=== PATIENT | female | born 1965 | race Caucasian/White ===

== ENCOUNTER 2016-08-30 23:50 | Observation (INO) | payer OTHER ==
--- NOTE | 2016-08-31 00:12 | ED PDOC ---
Arrival/HPI - General Chief Complaint: Chest Pain Time Seen by Provider: 08/30/16 23:51 Historian: Patient - History of Present Illness Narrative History of Present Illness (Text): 08/31/16 00:09 51 year old female whose past medical history includes diabetes mellitus present to the Emergency department complaining of intermittent chest discomfort described as chest pressure that began yesterday. Patient denies shortness of breath, fever, cough, or chills. Patient states she recurrent chest discomfort this evening which brought her to the Emergency department. She states she is currently asymptomatic. Patient is not a smoker. Time/Duration: 24 hours Symptom Onset: Gradual Symptom Course: Unchanged Activities at Onset: Rest Past Medical History - Provider Review Nursing Documentation Reviewed: Yes - Past History Past History: Non-Contributing - Infectious Disease Hx of Infectious Diseases: None - Tetanus Immunization Tetanus Immunization: Unknown - Cardiac Hx Cardiac Disorders: No - Pulmonary Hx Respiratory Disorders: No - Neurological Hx Neurological Disorder: No - HEENT Hx HEENT Disorder: No - Renal Hx Renal Disorder: No - Endocrine/Metabolic Hx Endocrine Disorders: Yes Hx Diabetes Mellitus Type 2: Yes - Hematological/Oncological Hx Blood Disorders: Yes Hx Anemia: Yes - Integumentary Hx Dermatological Disorder: No - Musculoskeletal/Rheumatological Hx Musculoskeletal Disorders: No Hx Falls: No - Gastrointestinal Hx Gastrointestinal Disorders: No - Genitourinary/Gynecological Hx Genitourinary Disorders: No - Psychiatric Hx Psychophysiologic Disorder: No Hx Substance Use: No - Surgical History Hx Hysterectomy: Yes - Anesthesia Hx Anesthesia: Yes Hx Anesthesia Reactions: No Hx Malignant Hyperthermia: No - Suicidal Assessment Feels Threatened In Home Enviroment: No Family/Social History - Physician Review Nursing Documentation Reviewed: Yes Family/Social History: Unknown Family HX Smoking Status: Never Smoked Hx Alcohol Use: No Hx Substance Use: No Hx Substance Use Treatment: No Allergies/Home Meds Allergies/Adverse Reactions: Allergies No Known Allergies Allergy (Verified 08/31/16 00:15) Home Medications: Home Meds Medication Instructions Recorded Confirmed metFORMIN [glucOPHAGE] 500 mg PO DAILY 04/29/16 08/31/16 Review of Systems - Physician Review All systems were reviewed & negative as marked: Yes - Review of Systems Constitutional: absent: Fevers, Other (chills) Respiratory: absent: SOB, Cough Cardiovascular: Other (+intermittent chest discomfort) Physical Exam Vital Signs Reviewed: Yes Vital Signs Temp Pulse Resp BP Pulse Ox 08/31/16 04:10 60 14 118/76 96 08/31/16 03:48 98.2 F 68 16 119/86 96 08/31/16 02:43 98.1 F 69 17 134/80 96 08/31/16 00:17 98.5 F 85 16 108/68 100 Temperature: Afebrile Blood Pressure: Normal Pulse: Regular Respiratory Rate: Normal Appearance: Positive for: Well-Appearing, Non-Toxic, Comfortable Pain Distress: None Mental Status: Positive for: Alert and Oriented X 3 - Systems Exam Head: Present: Atraumatic, Normocephalic Pupils: Present: PERRL Extroacular Muscles: Present: EOMI Conjunctiva: Present: Normal Mouth: Present: Moist Mucous Membranes Neck: Present: Normal Range of Motion Respiratory/Chest: Present: Clear to Auscultation, Good Air Exchange. No: Respiratory Distress, Accessory Muscle Use, Wheezes, Rales, Rhonchi Cardiovascular: Present: Regular Rate and Rhythm, Normal S1, S2. No: Murmurs, Rub, Gallop Abdomen: Present: Normal Bowel Sounds. No: Tenderness, Distention, Peritoneal Signs, Rebound, Guarding Back: Present: Normal Inspection Upper Extremity: Present: Normal Inspection. No: Cyanosis, Edema Lower Extremity: Present: Normal Inspection. No: Edema Neurological: Present: GCS=15, CN II-XII Intact, Speech Normal Skin: Present: Warm, Dry, Normal Color. No: Rashes Psychiatric: Present: Alert, Oriented x 3, Normal Insight, Normal Concentration Medical Decision Making ED Course and Treatment: 08/31/16 00:13 Impression: 51 year old female complaining of intermittent chest discomfort. Physical exam unremarkable. Plan: --EKG --Chest X-ray --Labs -- Reassess and disposition Prior Visits: Notes and results from previous visits were reviewed. Progress Notes: 08/31/16 00:14 EKG: Ordered, reviewed, and independently interpreted the EKG. Rate : 91 BPM Rhythm : NSR Interpretation : nonspecific ST/T changes 08/31/16 01:59 Chest X-ray Impression: negative, read by me. Case discussed with Dr. Forman who accepts patient to her service. - Lab Interpretations Lab Results: 08/31/16 00:35 08/31/16 00:35 Lab Results 08/31/16 00:35: WBC 6.5 D, RBC 5.01, Hgb 12.9, Hct 40.6, MCV 81.0, MCH 25.7, MCHC 31.8, RDW 13.7, Plt Count 226, MPV 10.3, PT 11.5, INR 1.06, APTT 24.7, Sodium 141, Potassium 3.5 L, Chloride 103, Carbon Dioxide 27, Anion Gap 15, BUN 25 H, Creatinine 0.6, Est GFR ( Amer) > 60, Est GFR (Non-Af Amer) > 60, Random Glucose 148 H, Calcium 9.2, Total Bilirubin 0.5, AST 27, ALT 9, Alkaline Phosphatase 65, Lactate Dehydrogenase 505, Total Creatine Kinase 143, Troponin I < 0.01, Total Protein 7.6, Albumin 4.2, Globulin 3.4, Albumin/Globulin Ratio 1.2 I have reviewed the lab results: Yes - RAD Interpretation Radiology Orders: 08/31/16 00:05 CHEST PORTABLE [RAD] Stat - Medication Orders Current Medication Orders: Acetaminophen (Tylenol 325mg Tab) 650 mg PO Q6H PRN PRN Reason: Fever >100.4 F Aspirin (Ecotrin) 81 mg PO DAILY TEVIN Enoxaparin Sodium (Lovenox) 40 mg SC DAILY TEVIN PRN Reason: Protocol Insulin Human Lispro (Humalog Low) 0 units SC ACHS TEVIN PRN Reason: Protocol Pantoprazole Sodium (Protonix Ec Tab) 40 mg PO 0630 TEVIN - Scribe Statement The provider has reviewed the documentation as recorded by the Corbin Wise Provider Scribe Attestation: All medical record entries made by the Scribe were at my direction and personally dictated by me. I have reviewed the chart and agree that the record accurately reflects my personal performance of the history, physical exam, medical decision making, and the department course for this patient. I have also personally directed, reviewed, and agree with the discharge instructions and disposition. Disposition/Present on Arrival - Present on Arrival Any Indicators Present on Arrival: No History of DVT/PE: No History of Uncontrolled Diabetes: No Urinary Catheter: No History of Decub. Ulcer: No History Surgical Site Infection Following: None - Disposition Have Diagnosis and Disposition been Completed?: Yes Diagnosis: Chest pain Disposition: HOSPITALIZED Disposition Time: 02:08 Patient Plan: Observation Patient Problems: Current Active Problems Problem Status Diagnosed Chest pain Acute Condition: GOOD
[2016-08-31 01:09] LABS: HEMATOCRIT 40.6 % (36.0-48.0); MEAN CORPUSCULAR HEMOGLOBIN 25.7 pg (25.0-35.0); MEAN CORPUSCULAR HGB CONC 31.8 g/dl (31.0-37.0); MEAN PLATELET VOLUME 10.3 fl (7.0-11.0); RED CELL DISTRIBUTION WIDTH 13.7 % (11.5-14.5); WHITE BLOOD COUNT 6.5 10^3/ul (4.5-11.0)
[2016-08-31 01:11] LABS: ALB/GLOB RATIO 1.2 (1.1-1.8); ALKALINE PHOSPHATASE 65 U/L (38-133); ALT/SGPT 9 U/L (7-56); AST/SGOT 27 U/L (15-39); BILIRUBIN,TOTAL 0.5 mg/dL (0.2-1.3); BLOOD UREA NITROGEN 25 mg/dL (7-21); CALCIUM 9.2 mg/dL (8.4-10.5); CARBON DIOXIDE 27 mmol/L (21-33); CHLORIDE 103 mmol/L (98-107); GFR AFRICAN-AMERICAN > 60; GLUCOSE,RANDOM 148 mg/dL (70-110); POTASSIUM 3.5 mmol/L (3.6-5.0); SODIUM 141 mmol/L (132-148); TOTAL PROTEIN 7.6 g/dL (5.8-8.3)
[2016-08-31 01:27] LABS: INR 1.06 (0.93-1.08); PARTIAL THROMBOPLASTIN TIME 24.7 Seconds (23.7-30.8); TROPONIN I < 0.01 ng/mL
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
[2016-08-31 05:27] VITALS: BMI 21.4
[2016-08-31 06:17] VITALS: O2SAT 99
[2016-08-31] MEDS ORDERED: Pantoprazole 40 mg EC Tab PO SCH ×2 (06:30→16:00)
[2016-08-31] MEDS: Insulin Lispro (humaLOG) LOW Coverage SC SCH ×2 (07:43→12:14)
[2016-08-31 08:29] LABS: ADD MANUAL DIFF? NO
[2016-08-31 08:45] LABS: BASO # 0.01 K/mm3 (0.0-2.0); BASO % 0.2 % (0.0-3.0); EOS # 0.1 (0.0-0.7); EOS % 2.1 % (1.5-5.0); GRAN # 3.46 (1.4-6.5); GRAN % 67.7 % (50.0-68.0); HEMATOCRIT 40.7 % (36.0-48.0); LYMPH # 1.2 (1.2-3.4); LYMPH % 23.2 % (22.0-35.0); MEAN CELL VOLUME 80.9 fL (80.0-105.0); MEAN CORPUSCULAR HEMOGLOBIN 25.6 pg (25.0-35.0); MEAN CORPUSCULAR HGB CONC 31.7 g/dl (31.0-37.0); MEAN PLATELET VOLUME 10.1 fl (7.0-11.0); MONO # 0.4 (0.1-0.6); MONO % 6.8 % (1.0-6.0); PLATELET COUNT 214 10^3/uL (120.0-450.0); RED CELL DISTRIBUTION WIDTH 13.7 % (11.5-14.5); WHITE BLOOD COUNT 5.1 10^3/ul (4.5-11.0)
[2016-08-31 08:48] LABS: ALB/GLOB RATIO 1.2 (1.1-1.8); ALKALINE PHOSPHATASE 68 U/L (38-133); ALT/SGPT 14 U/L (7-56); AST/SGOT 29 U/L (15-39); BILIRUBIN,TOTAL 0.6 mg/dL (0.2-1.3); BLOOD UREA NITROGEN 16 mg/dL (7-21); CALCIUM 9.1 mg/dL (8.4-10.5); CARBON DIOXIDE 27 mmol/L (21-33); CHLORIDE 103 mmol/L (98-107); CHOLESTEROL 169 mg/dL (130-200); GFR AFRICAN-AMERICAN > 60; GLUCOSE,RANDOM 110 mg/dL (70-110); SODIUM 139 mmol/L (132-148); TOTAL PROTEIN 7.3 g/dL (5.8-8.3)
[2016-08-31 08:57] LABS: TROPONIN I < 0.01 ng/mL
[2016-08-31 09:10] LABS: T4 8.3 ug/dL (5.5-11.0)
[2016-08-31 09:11] LABS: FREE T4 1.11 ng/dL (0.78-2.19)
[2016-08-31 09:24] LABS: THYROID STIMULATING HORMONE 0.61 mIU/mL (0.46-4.68)
[2016-08-31] MEDS ORDERED: Enoxaparin 40 mg Syringe SC SCH (10:00)
--- NOTE | 2016-08-31 12:46 | CARD ---
APPROVED REPORT EKG Measurement Heart [id number] <Conclusion> Normal sinus rhythm Possible Left atrial enlargement Nonspecific ST abnormality Prolonged QT Abnormal ECG
[2016-08-31 12:50] VITALS: BP 115/71; RESP 20; TEMP 98.4
--- NOTE | 2016-08-31 13:18 | RAD ---
HISTORY: chest pain COMPARISON: No prior. FINDINGS: LUNGS: No active pulmonary disease. PLEURA: No significant pleural effusion identified, no pneumothorax apparent. CARDIOVASCULAR: Normal. OSSEOUS STRUCTURES: No significant abnormalities. VISUALIZED UPPER ABDOMEN: Normal. OTHER FINDINGS: None. IMPRESSION: No active disease.
--- NOTE | 2016-08-31 14:17 | CON ---
DATE: 08/31/2016 REASON FOR CONSULTATION: Chest pain. HISTORY OF PRESENT ILLNESS: The patient is a 51-year-old Citizen Of [place] female who has a history of hypert ension, and was recently diagnosed with diabetes, presented because of chest pain that is nonradiatin g. The patient is unaware of any prior cardiac history in the past. The patient has a history of de pression and she requested help from her primary physician. She deferred her to an Worship seed specialist w ho happened to be a former psychiatrist in his country in [place]. The patient has not consulted with the seed specialist yet for depression. The patient denies any suicidal ideation. SOCIAL HISTORY: The patient is a nonsmoker. MEDICATIONS: Aspirin 81 mg once a day, Lovenox 40 mg subcutaneous once a day, Protonix 40 mg p.o. tw ice a day, Tylenol 650 mg q. 6 hours for fever above 100.4. PHYSICAL EXAMINATION: GENERAL: The patient is a middle-aged female who does not appear to be in any distress. VITAL SIGNS: Blood pressure 115/71, heart rate 61, temperature 98.4, respirations 20. HEENT: Normocephalic. NECK: No JVD. CHEST: Clear. HEART: S1, S2 regular. ABDOMEN: Soft. EXTREMITIES: No edema. LABORATORY DATA: PT, PTT and INR are within normal limits. Today's SMA-7 is entirely within normal limits. Two sets of troponins are negative. Lipid profile is within normal limits except for HDL ch olesterol of 93. TSH level is within normal limits. CBC on admission is within normal limits. EKG revealed normal sinus rhythm, possible left atrial enlargement. Chest x-ray was unremarkable. ASSESSMENT: 1. Atypical chest pain, myocardial infarction is ruled out. 2. History of depression. 3. Diabetes mellitus. RECOMMENDATIONS: Continue current aspirin and subcutaneous Lovenox. I suggest obtaining psychiatry consult and I will order an echocardiogram. Sunil Ellsworth MD cc: [id number] TT: 08/31/2016 14:16:54 Confirmation # [id number] Dictation # [id number] thomas
[2016-08-31 15:47] VITALS: PULSE 89
--- NOTE | 2016-08-31 16:19 | CP.PCM.DIS ---
Provider - Provider Date of Admission: 08/31/16 02:08 Attending physician: Palma Forman MD Primary care physician: Gissell Cifuentes MD Consults: Cardiology: Dr Maloney Time Spent in preparation of Discharge (in minutes): 35 Hospital Course - Lab Results Lab Results: Most Recent Lab Values WBC 5.1 10^3/ul (4.5-11.0) D 08/31/16 08:15 RBC 5.03 10^6/uL (3.5-6.1) 08/31/16 08:15 Hgb 12.9 gm/dL (12.0-16.0) 08/31/16 08:15 Hct 40.7 % (36.0-48.0) 08/31/16 08:15 MCV 80.9 fL (80.0-105.0) 08/31/16 08:15 MCH 25.6 pg (25.0-35.0) 08/31/16 08:15 MCHC 31.7 g/dl (31.0-37.0) 08/31/16 08:15 RDW 13.7 % (11.5-14.5) 08/31/16 08:15 Plt Count 214 10^3/uL (120.0-450.0) 08/31/16 08:15 MPV 10.1 fl (7.0-11.0) 08/31/16 08:15 Gran % 67.7 % (50.0-68.0) 08/31/16 08:15 Lymph % (Auto) 23.2 % (22.0-35.0) 08/31/16 08:15 [place] % (Auto) 6.8 % (1.0-6.0) H 08/31/16 08:15 Eos % (Auto) 2.1 % (1.5-5.0) 08/31/16 08:15 Baso % (Auto) 0.2 % (0.0-3.0) 08/31/16 08:15 Gran # 3.46 (1.4-6.5) 08/31/16 08:15 Lymph # 1.2 (1.2-3.4) 08/31/16 08:15 [place] # 0.4 (0.1-0.6) 08/31/16 08:15 Eos # 0.1 (0.0-0.7) 08/31/16 08:15 Baso # 0.01 K/mm3 (0.0-2.0) 08/31/16 08:15 PT 11.5 Seconds (9.9-11.8) 08/31/16 00:35 INR 1.06 (0.93-1.08) 08/31/16 00:35 APTT 24.7 Seconds (23.7-30.8) 08/31/16 00:35 D-Dimer, Quantitative 0.19 mg/L FEU (0-0.50) 08/31/16 08:15 Sodium 139 mmol/L (132-148) 08/31/16 08:15 Potassium 4.0 mmol/L (3.6-5.0) 08/31/16 08:15 Chloride 103 mmol/L (98-107) 08/31/16 08:15 Carbon Dioxide 27 mmol/L (21-33) 08/31/16 08:15 Anion Gap 13 (10-20) 08/31/16 08:15 BUN 16 mg/dL (7-21) 08/31/16 08:15 Creatinine 0.5 mg/dL (0.5-1.4) 08/31/16 08:15 Est GFR ( Amer) > 60 08/31/16 08:15 Est GFR (Non-Af Amer) > 60 08/31/16 08:15 Random Glucose 110 mg/dL (70-110) 08/31/16 08:15 Calcium 9.1 mg/dL (8.4-10.5) 08/31/16 08:15 Magnesium 2.0 mg/dL (1.7-2.2) 08/31/16 08:15 Total Bilirubin 0.6 mg/dL (0.2-1.3) 08/31/16 08:15 AST 29 U/L (15-39) 08/31/16 08:15 ALT 14 U/L (7-56) 08/31/16 08:15 Alkaline Phosphatase 68 U/L (38-133) 08/31/16 08:15 Lactate Dehydrogenase 454 U/L (333-699) 08/31/16 08:15 Total Creatine Kinase 122 U/L (35-230) 08/31/16 08:15 Troponin I < 0.01 ng/mL 08/31/16 08:15 Total Protein 7.3 g/dL (5.8-8.3) 08/31/16 08:15 Albumin 4.0 g/dL (3.0-4.8) 08/31/16 08:15 Globulin 3.3 gm/dL 08/31/16 08:15 Albumin/Globulin Ratio 1.2 (1.1-1.8) 08/31/16 08:15 Triglycerides 66 mg/dL (35-160) 08/31/16 08:15 Cholesterol 169 mg/dL (130-200) 08/31/16 08:15 LDL Cholesterol Direct 55 mg/dL (0-129) 08/31/16 08:15 HDL Cholesterol 93 mg/dL (29-60) H 08/31/16 08:15 Free T4 1.11 ng/dL (0.78-2.19) 08/31/16 08:15 Thyroxine (T4) 8.3 ug/dL (5.5-11.0) 08/31/16 08:15 TSH 3rd Generation 0.61 mIU/mL (0.46-4.68) 08/31/16 08:15 - Hospital Course Hospital Course: This is 51 year old [place] female with a history of DM on metformin, small hiatal hernia, dysphagia due to dysmotility, acid reflux after full meal, and Hx anemia due to dysfunctional uterine bleeding s/p hysterectomy who presented with chest pressure which started after hearing some news. Currently denies any complaints. Chest pain is reproducible on palpation. Serial cardiac iso and ekg is negative. She recently had echocardiogram which was normal. BNP and d dimer negative. Cardiology cleared the patient for discharge however patient expressed lot of concerns regarding anxiety and requested to be seen by psychiatrist. She reported that her thinks that she has schizophrenia. She denies suicidal or homicidal ideation. Denies visual hallucination however somewhat admits to auditory hallucinations. She states that she talk to herself loudly and her is concerned about that. Also states that her blames her that she is cheating on him. All this can be related to paranoia however patient did not allow me to obtain collateral information. Patient is alert, awake, understands that she needs to see psychiatrist but is not willing to stay and wants to follow up as an outpatient. Advised patient to follow up with Dr Gissell Cifuentes in 3-[address] Palma Forman Discharge Exam - Head Exam Head Exam: ATRAUMATIC, NORMOCEPHALIC - Eye Exam Eye Exam: EOMI, Normal appearance, PERRL Pupil Exam: PERRL - ENT Exam ENT Exam: Mucous Membranes Moist - Neck Exam Neck exam: Full Rom, Normal Inspection - Respiratory Exam Respiratory Exam: Chest Wall Tenderness, Clear to PA & Lateral, NORMAL BREATHING PATTERN - Cardiovascular Exam Cardiovascular Exam: REGULAR RHYTHM, +S1, +S2 - GI/Abdominal Exam GI & Abdominal Exam: Normal Bowel Sounds, Soft. absent: Distended, Tenderness - Rectal Exam Rectal Exam: Deferred - Extremities Exam Extremities exam: full ROM, normal inspection - Back Exam Back exam: FULL ROM, NORMAL INSPECTION. absent: CVA tenderness (L), CVA tenderness (R), paraspinal tenderness, tenderness, vertebral tenderness - Neurological Exam Neurological exam: Alert, CN II-XII Intact, Normal Gait, Oriented x3, Reflexes Normal - Psychiatric Exam Psychiatric exam: Normal Affect, Normal Mood - Skin Skin Exam: Dry, Intact, Normal Color, Warm Discharge Plan - Follow Up Plan Condition: GOOD Disposition: AGAINST MEDICAL ADVICE Patient education suggested?: Yes Additional Instructions: Patient left AMA Referrals: Gissell Cifuentes MD [Primary Care Provider] -
== END 2016-08-31 15:46 | disposition left against medical advice (07) ==
LOC: ED 23:50 → ERH 08-31 02:08 → 2RNO 08-31 04:27
PROVIDERS: ADMIT Hospitalist; ATTEND Hospitalist
DX: R07.89 Other chest pain (principal); K44.9 Diaphragmatic hernia without obstruction or gangrene; K22.4 Dyskinesia of esophagus; R13.10 Dysphagia, unspecified; K21.9 Gastro-esophageal reflux disease without esophagitis; N93.8 Other specified abnormal uterine and vaginal bleeding; Z90.710 Acquired absence of both cervix and uterus; E11.9 Type 2 diabetes mellitus without complications; D64.9 Anemia, unspecified; N39.0 Urinary tract infection, site not specified; I10 Essential (primary) hypertension; F41.9 Anxiety disorder, unspecified; F22 Delusional disorders; R40.2412 Glasgow coma scale score 13-15, at arrival to emergency department; R44.0 Auditory hallucinations; F32.89 Other specified depressive episodes
CPT/HCPCS: 71010; 80053; 80061; 82550; 82948; 83036; 83615; 83735; 84439; 84443; 84484; 85025; 85027; 85378; 85610; 85730; 93005; 96372; 99285; G0378; J1650

== ENCOUNTER 2016-09-27 20:58 | Observation (INO) | payer OTHER ==
[2016-09-27 21:02] VITALS: BMI 21.7
--- NOTE | 2016-09-27 21:26 | ED PDOC ---
Arrival/HPI - General Chief Complaint: Chest Pain Time Seen by Provider: 09/27/16 21:08 Historian: Patient, Spouse - History of Present Illness Narrative History of Present Illness (Text): 09/27/16 21:24 Charlene Reyes is a 51 year old female, whose past medical history includes hypertension, diabetes, GERD, and anemia, who presents to the Emergency department accompanied by spouse complaining of chest pain. Patient states she has been experiencing intermittent mid-sternal chest pain for past 4 days, worsened today. Patient denies any fever, chills, shortness of breath, nausea, vomiting, diarrhea, urinary symptoms, back pain, neck pain, headache, dizziness , or any other complaints. Time/Duration: < week (4 days) Symptom Onset: Gradual Symptom Course: Intermittent, Worsening Activities at Onset: Rest, Light Context: Work Past Medical History - Provider Review Nursing Documentation Reviewed: Yes - Past History Past History: Non-Contributing - Infectious Disease Hx of Infectious Diseases: None - Tetanus Immunization Tetanus Immunization: Unknown - Cardiac Hx Cardiac Disorders: No - Pulmonary Hx Respiratory Disorders: No - Neurological Hx Neurological Disorder: No - HEENT Hx HEENT Disorder: No - Renal Hx Renal Disorder: No - Endocrine/Metabolic Hx Endocrine Disorders: Yes Hx Diabetes Mellitus Type 2: Yes - Hematological/Oncological Hx Blood Disorders: Yes Hx Anemia: Yes - Integumentary Hx Dermatological Disorder: No - Musculoskeletal/Rheumatological Hx Musculoskeletal Disorders: No Hx Falls: No - Gastrointestinal Hx Gastrointestinal Disorders: No - Genitourinary/Gynecological Hx Genitourinary Disorders: No - Psychiatric Hx Psychophysiologic Disorder: No Hx Substance Use: No - Surgical History Hx Hysterectomy: Yes - Anesthesia Hx Anesthesia: Yes Hx Anesthesia Reactions: No Hx Malignant Hyperthermia: No - Suicidal Assessment Feels Threatened In Home Enviroment: No Family/Social History - Physician Review Nursing Documentation Reviewed: Yes Family/Social History: No Known Family HX Smoking Status: Never Smoked Hx Alcohol Use: No Hx Substance Use: No Hx Substance Use Treatment: No Allergies/Home Meds Allergies/Adverse Reactions: Allergies No Known Allergies Allergy (Verified 08/31/16 00:15) Home Medications: Home Meds Medication Instructions Recorded Confirmed metFORMIN [glucOPHAGE] 500 mg PO DAILY 04/29/16 08/31/16 Review of Systems - Physician Review All systems were reviewed & negative as marked: Yes - Review of Systems Constitutional: Normal. absent: Fevers Eyes: Normal ENT: Normal Respiratory: Normal. absent: SOB, Cough Cardiovascular: Chest Pain Gastrointestinal: Normal. absent: Abdominal Pain, Diarrhea, Nausea, Vomiting Genitourinary Female: Normal. absent: Dysuria, Frequency, Hematuria, Urine Output Changes Musculoskeletal: Normal. absent: Back Pain, Neck Pain Skin: Normal. absent: Rash Neurological: Normal. absent: Headache, Dizziness Endocrine: Normal Hemo/Lymphatic: Normal Psychiatric: Normal Physical Exam Vital Signs Reviewed: Yes Vital Signs Temp Pulse Resp BP Pulse Ox 09/27/16 22:07 98.0 F 70 16 97/62 L 99 Temperature: Afebrile Blood Pressure: Normal Pulse: Regular Respiratory Rate: Normal Appearance: Positive for: Well-Appearing, Non-Toxic, Comfortable Pain Distress: None Mental Status: Positive for: Alert and Oriented X 3 - Systems Exam Head: Present: Atraumatic, Normocephalic Pupils: Present: PERRL Extroacular Muscles: Present: EOMI Conjunctiva: Present: Normal Mouth: Present: Moist Mucous Membranes Neck: Present: Normal Range of Motion Respiratory/Chest: Present: Clear to Auscultation, Good Air Exchange. No: Respiratory Distress, Accessory Muscle Use Cardiovascular: Present: Regular Rate and Rhythm, Normal S1, S2. No: Murmurs Abdomen: Present: Normal Bowel Sounds. No: Tenderness, Distention, Peritoneal Signs Back: Present: Normal Inspection Upper Extremity: Present: Normal Inspection. No: Cyanosis, Edema Lower Extremity: Present: Normal Inspection. No: Edema Neurological: Present: GCS=15, CN II-XII Intact, Speech Normal Skin: Present: Warm, Dry, Normal Color. No: Rashes Psychiatric: Present: Alert, Oriented x 3, Normal Insight, Normal Concentration Medical Decision Making ED Course and Treatment: 09/27/16 21:24 Impression: 51 year old female complaining of mid-sternal chest pain x4 days. Plan: -- EKG -- Chest X-ray -- Labs, cardiac enzymes -- Aspirin -- Reassess and disposition Prior Visits: Notes and results from previous visits were reviewed. On 08/31/2016, pt was seen in the Emergency department for chest pain. Pt was admitted to the hospital for further evaluation. Progress Notes: Reviewed EKG, NSR at [address]-segment elevations or depressions, no T-wave inversions, normal intervals. 09/27/16 22:35 Reviewed radiology, Chest X-ray shows no active disease. 09/27/16 22:38 Case discussed with medical dermatologist taxation inspector, who is aware and agrees with plan. House physician paged. 09/27/16 22:[address] Katarina Forman, house physician, who is aware and agrees with plan. Accepts pt in to hospitalist service. Pt will go to Telemetry observation for chest pain. - Lab Interpretations Lab Results: 09/27/16 21:22 09/27/16 21:22 Lab Results 09/27/16 21:22: WBC 7.0 D, RBC 4.77, Hgb 12.3, Hct 38.5, MCV 80.7, MCH 25.8, MCHC 31.9, RDW 13.6, Plt Count 240, MPV 9.6 09/27/16 21:22: Sodium 140, Potassium 4.0, Chloride 100, Carbon Dioxide 30, Anion Gap 14, BUN 28 H, Creatinine 1.1, Est GFR ( Amer) > 60, Est GFR ( Non-Af Amer) 52, Random Glucose 105, Calcium 9.3, Total Bilirubin 0.6, AST 49 H , ALT 30, Alkaline Phosphatase 55, Lactate Dehydrogenase 472, Total Creatine Kinase 102, Troponin I < 0.01, Total Protein 7.5, Albumin 4.2, Globulin 3.2, Albumin/Globulin Ratio 1.3 09/27/16 21:22: PT 10.9, INR 1.01, APTT 23.8 I have reviewed the lab results: Yes - RAD Interpretation Radiology Orders: 09/27/16 21:25 CHEST PORTABLE [RAD] Stat Brake Specialist: ED Physician - EKG Interpretation Interpreted by ED Physician: Yes Type: 12 lead EKG - Medication Orders Current Medication Orders: Discontinued Medications Aspirin (Aspirin) 325 mg PO ONCE STA Stop: 09/27/16 21:40 Last Admin: 09/27/16 21:48 Dose: 325 mg Aspirin (Ecotrin) Confirm Administered Dose 325 mg PO .STK-MED ONE Stop: 09/27/16 21:46 Last Admin: 09/27/16 22:02 Dose: Aspirin (Ecotrin) Confirm Administered Dose 325 mg PO .STK-MED ONE Stop: 09/27/16 21:49 Last Admin: 09/27/16 22:03 Dose: - Scribe Statement The provider has reviewed the documentation as recorded by the Corbin Westfall Provider Attestation: All medical record entries made by the Corbin were at my direction and personally dictated by me. I have reviewed the chart and agree that the record accurately reflects my personal performance of the history, physical exam, medical decision making, and the department course for this patient. I have also personally directed, reviewed, and agree with the discharge instructions and disposition. Disposition/Present on Arrival - Present on Arrival Any Indicators Present on Arrival: No History of DVT/PE: No History of Uncontrolled Diabetes: No Urinary Catheter: No History of Decub. Ulcer: No History Surgical Site Infection Following: None - Disposition Have Diagnosis and Disposition been Completed?: Yes Diagnosis: Chest pain Disposition: HOSPITALIZED Disposition Time: 22:56 Patient Plan: Observation Condition: STABLE Discharge Instructions (ExitCare): Chest Pain (ED)
[2016-09-27] MEDS ORDERED: Aspirin 325 mg EC Tablets PO ONE ×2 (21:45→21:48)
[2016-09-27 22:05] LABS: HEMATOCRIT 38.5 % (36.0-48.0); MEAN CELL VOLUME 80.7 fL (80.0-105.0); MEAN CORPUSCULAR HEMOGLOBIN 25.8 pg (25.0-35.0); MEAN CORPUSCULAR HGB CONC 31.9 g/dl (31.0-37.0); MEAN PLATELET VOLUME 9.6 fl (7.0-11.0); RED CELL DISTRIBUTION WIDTH 13.6 % (11.5-14.5)
[2016-09-27 22:06] LABS: INR 1.01 (0.93-1.08); PARTIAL THROMBOPLASTIN TIME 23.8 Seconds (23.7-30.8)
[2016-09-27 22:09] LABS: ALB/GLOB RATIO 1.3 (1.1-1.8); ALKALINE PHOSPHATASE 55 U/L (38-133); ALT/SGPT 30 U/L (7-56); AST/SGOT 49 U/L (15-39); BILIRUBIN,TOTAL 0.6 mg/dL (0.2-1.3); BLOOD UREA NITROGEN 28 mg/dL (7-21); CALCIUM 9.3 mg/dL (8.4-10.5); CARBON DIOXIDE 30 mmol/L (21-33); CHLORIDE 100 mmol/L (98-107); GFR AFRICAN-AMERICAN > 60; GLUCOSE,RANDOM 105 mg/dL (70-110); SODIUM 140 mmol/L (132-148); TOTAL PROTEIN 7.5 g/dL (5.8-8.3)
[2016-09-27 22:29] LABS: TROPONIN I < 0.01 ng/mL
--- NOTE | 2016-09-28 00:21 | CP.PCM.HP ---
History of Present Illness - History of Present Illness History of Present Illness: CC: "Chest pressure and burning" HPI: Pt is a 51 year old female with a PMHx of Diabetes Mellitus, GERD, and anemia who presented to the ED with complaints of chest pressure and burning for the past 4 days. She reports that the feeling comes and goes and usually last 15 minutes at a time. She reports that she came in today because the symptoms became worse. Pt also reports that she has pain in the back of her neck and a headache. Pt was recently admitted a month ago for similar complaints. Pt was stable as per cardiology during last visit. Pt reports that she felt a little bit short of breath yesterday. She reports that she had a stress test done with her texture artist a few months ago at her PMD, Dr. Gissell Cifuentes's, office who said that everything was normal. Pt reports that she is also experiencing symptoms of anxiety and depression. She reports that she tried to see a psychiatrist, but she could not find one that would accept her insurance. Pt denies current fever, chills, shortness of breath, nausea, vomiting. PMHx: Diabetes Mellitus, GERD, anemia Past Surgical Hx: Hysterectomy Home medications: Metformin 500 mg po qd Allergies: NKDA Social Hx: denies hx of tobacco, alcohol, drug use Family Hx: Multiple sclerosis, congenital heart defect (brother) Present on Admission - Present on Admission Any Indicators Present on Admission: No Review of Systems - Constitutional Constitutional: absent: Chills, Fever - EENT Eyes: absent: Change in Vision Ears: absent: Disequilibrium, Dizziness Nose/Mouth/Throat: absent: Nasal Congestion - Cardiovascular Cardiovascular: Chest Pain. absent: Leg Edema, Syncope - Respiratory Respiratory: absent: Cough, Wheezing - Gastrointestinal Gastrointestinal: Heartburn. absent: Abdominal Pain, Melena, Nausea - Musculoskeletal Musculoskeletal: Neck Pain. absent: Abnormal Gait - Neurological Neurological: Headaches. absent: Dizziness - Psychiatric Psychiatric: Anxiety, Depression Past Patient History - Infectious Disease Hx of Infectious Diseases: None - Tetanus Immunizations Tetanus Immunization: Unknown - Past Social History Smoking Status: Never Smoked - CARDIAC Hx Cardiac Disorders: No - PULMONARY Hx Respiratory Disorders: No - NEUROLOGICAL Hx Neurological Disorder: No - HEENT Hx HEENT Problems: No - RENAL Hx Chronic Kidney Disease: No - ENDOCRINE/METABOLIC Hx Endocrine Disorders: Yes Hx Diabetes Mellitus Type 2: Yes - HEMATOLOGICAL/ONCOLOGICAL Hx Blood Disorders: Yes Hx Anemia: Yes - INTEGUMENTARY Hx Dermatological Problems: No - MUSCULOSKELETAL/RHEUMATOLOGICAL Hx Musculoskeletal Disorders: No Hx Falls: No - GASTROINTESTINAL Hx Gastrointestinal Disorders: No - GENITOURINARY/GYNECOLOGICAL Hx Genitourinary Disorders: No - PSYCHIATRIC Hx Psychophysiologic Disorder: No Hx Substance Use: No - SURGICAL HISTORY Hx Hysterectomy: Yes - ANESTHESIA Hx Anesthesia: Yes Hx Anesthesia Reactions: No Hx Malignant Hyperthermia: No Meds Allergies/Adverse Reactions: Allergies Allergy/AdvReac Type Severity Reaction Status Date / Time No Known Allergies Allergy Verified 08/31/16 00:15 Physical Exam - Constitutional Appears: No Acute Distress - Head Exam Head Exam: ATRAUMATIC, NORMOCEPHALIC - Eye Exam Eye Exam: EOMI, PERRL - ENT Exam ENT Exam: Mucous Membranes Moist. absent: Mucous Membranes Dry - Neck Exam Neck exam: Positive for: Full Rom. Negative for: Lymphadenopathy - Respiratory Exam Respiratory Exam: Clear to Auscultation Bilateral. absent: Rales, Rhonchi, Wheezes - Cardiovascular Exam Cardiovascular Exam: +S1, +S2. absent: Gallop, Rubs - GI/Abdominal Exam GI & Abdominal Exam: Normal Bowel Sounds, Soft. absent: Tenderness - Extremities Exam Extremities exam: Positive for: full ROM. Negative for: pedal edema - Neurological Exam Neurological exam: Alert, Oriented x3 - Psychiatric Exam Psychiatric exam: Normal Affect, Normal Mood - Skin Skin Exam: Normal Color, Warm Results - Vital Signs Recent Vital Signs: Last Vital Signs Temp 98.0 F 09/27/16 22:07 Pulse 70 09/27/16 22:07 Resp 16 09/27/16 22:07 BP 97/62 L 09/27/16 22:07 Pulse Ox 99 09/27/16 22:07 - Labs Result Diagrams: 09/27/16 21:22 09/27/16 21:22 Assessment & Plan - Assessment and Plan (Free Text) Assessment: Chest Pain r/o ACS: Troponins negative x 1 Repeat cardiac enzymes pending EKG - no ST elevations (please see full report) Repeat EKG am Cardiology, Dr. Perea, consulted. Help appreciated. Azotemia: Bun/Cr: 28/1.1 NS IVF 100 cc/hr Anxiety/Depression: Psychiatry consulted, Dr. Phan, help appreciated. Diabetes Melltius: Metformin 500 mg po qd accuchecks achs Prophylactic Measures: DVT: SCDs, Heparin 5000 units sc q8h GI: Protonix 40 mg po qd
[2016-09-28] MEDS: Sodium Chloride 0.9% 1,000 ML IV SCH ×2 (02:08→11:59)
[2016-09-28] MEDS ORDERED: Pantoprazole 40 mg EC Tab PO SCH (06:30)
[2016-09-28 06:38] LABS: ADD MANUAL DIFF? NO
[2016-09-28 06:43] LABS: BASO # 0.03 K/mm3 (0.0-2.0); BASO % 0.6 % (0.0-3.0); EOS # 0.2 (0.0-0.7); EOS % 3.2 % (1.5-5.0); GRAN # 3.32 (1.4-6.5); GRAN % 62.3 % (50.0-68.0); HEMATOCRIT 38.7 % (36.0-48.0); LYMPH # 1.5 (1.2-3.4); LYMPH % 28.3 % (22.0-35.0); MEAN CELL VOLUME 80.5 fL (80.0-105.0); MEAN CORPUSCULAR HEMOGLOBIN 25.6 pg (25.0-35.0); MEAN CORPUSCULAR HGB CONC 31.8 g/dl (31.0-37.0); MEAN PLATELET VOLUME 9.2 fl (7.0-11.0); MONO # 0.3 (0.1-0.6); MONO % 5.6 % (1.0-6.0); PLATELET COUNT 195 10^3/uL (120.0-450.0); RED CELL DISTRIBUTION WIDTH 13.6 % (11.5-14.5); WHITE BLOOD COUNT 5.3 10^3/ul (4.5-11.0)
[2016-09-28 07:01] LABS: ALB/GLOB RATIO 1.3 (1.1-1.8); ALKALINE PHOSPHATASE 62 U/L (38-133); ALT/SGPT 34 U/L (7-56); AST/SGOT 37 U/L (15-39); BILIRUBIN,TOTAL 0.6 mg/dL (0.2-1.3); BLOOD UREA NITROGEN 18 mg/dL (7-21); CALCIUM 9.1 mg/dL (8.4-10.5); CARBON DIOXIDE 29 mmol/L (21-33); CHLORIDE 103 mmol/L (98-107); GFR AFRICAN-AMERICAN > 60; GLUCOSE,RANDOM 105 mg/dL (70-110); MAGNESIUM 2.1 mg/dL (1.7-2.2); SODIUM 139 mmol/L (132-148)
[2016-09-28 07:11] LABS: TROPONIN I < 0.01 ng/mL
[2016-09-28 08:43] LABS: CHOLESTEROL 189 mg/dL (130-200)
[2016-09-28 11:27] LABS: TROPONIN I < 0.01 ng/mL
--- NOTE | 2016-09-28 11:57 | RAD ---
HISTORY: chest pain COMPARISON: Comparison chest 08/31/2016 FINDINGS: LUNGS: No active pulmonary disease. PLEURA: No significant pleural effusion identified, no pneumothorax apparent. CARDIOVASCULAR: Normal. OSSEOUS STRUCTURES: No significant abnormalities. VISUALIZED UPPER ABDOMEN: Normal. OTHER FINDINGS: None. IMPRESSION: No active disease.
--- NOTE | 2016-09-28 13:33 | CARD ---
APPROVED REPORT EKG Measurement Heart [id number] <Conclusion> Normal sinus rhythm Possible Left atrial enlargement Borderline ECG
[2016-09-28 14:04] VITALS: TEMP 98.5
[2016-09-28 17:17] VITALS: BP 109/73; RESP 20; O2SAT 97
[2016-09-28 18:02] VITALS: PULSE 80
--- NOTE | 2016-09-28 19:13 | CON ---
DATE: 09/28/2016 REASON FOR CONSULTATION: Chest pain. HISTORY OF PRESENT ILLNESS: The patient is a 51-year-old [place] female who has a history of hypert ension, diabetes mellitus, history of depression. The patient had multiple admissions in the past. The most recent one was on 08/31 for chest pain. The patient's workup at that time was negative. The patient underwent a psych evaluation at the time because of experiencing depression. The patient pre sented at this time because of chest pain that is burning in nature, nonradiating. The patient denie s any associated shortness of breath or diaphoresis. SOCIAL HISTORY: The patient is a nonsmoker, nondrinker. MEDICATIONS: Metformin 500 mg orally daily, subcutaneous heparin 5000 units q. 8 hours, normal salin e 100 mL an hour, Protonix 40 mg p.o. once a day. REVIEW OF SYSTEMS: No vomiting or diarrhea. No fever, chill. PHYSICAL EXAMINATION: GENERAL: The patient is a middle-aged female who does not appear to be in any distress. VITAL SIGNS: Blood pressure 109/71, heart rate 61, temperature 97.7, respirations 18. HEENT: Normocephalic. NECK: No JVD. CHEST: Clear. HEART: S1, S2 regular. ABDOMEN: Soft. EXTREMITIES: No edema. LABORATORY DATA: Today's SMA-7 and CBC are within normal limits. Three sets of troponins are negati ve. PT, PTT are within normal limits. EKG reveals sinus rhythm, left atrial enlargement. Echocardi ographic study from April of last year revealed unremarkable study except for reduced left ventric ular diastolic compliance. ASSESSMENT: 1. Atypical chest pain. 2. Hypertension and diabetes mellitus. RECOMMENDATIONS: Continue current Glucophage-metformin, start aspirin 81 mg once a day. Obtain seru m D-dimer. Consider an outpatient exercise treadmill stress test. Sunil Ellsworth MD cc: [id number] TT: 09/28/2016 19:12:30 Confirmation # [id number] Dictation # [id number] toby
[2016-09-30] MEDS ORDERED: Pneumococcal 23-Valent Vaccine IM ONE (10:00)
== END 2016-09-28 21:11 | disposition left against medical advice (07) ==
LOC: ED 20:58 → ERH 22:54 → 2RNO 09-28 01:35
PROVIDERS: ADMIT Hospitalist; ATTEND Internal Medicine
DX: R07.89 Other chest pain (principal); E11.9 Type 2 diabetes mellitus without complications; I10 Essential (primary) hypertension; F41.9 Anxiety disorder, unspecified; F32.89 Other specified depressive episodes; K21.9 Gastro-esophageal reflux disease without esophagitis; D64.9 Anemia, unspecified; R40.2412 Glasgow coma scale score 13-15, at arrival to emergency department; R51 Headache; M54.2 Cervicalgia; Z90.710 Acquired absence of both cervix and uterus; Z79.84 Long term (current) use of oral hypoglycemic drugs; Z82.0 Family history of epilepsy and other diseases of the nervous system; Z82.49 Family history of ischemic heart disease and other diseases of the circulatory system
CPT/HCPCS: 71010; 80053; 80061; 82550; 82948; 83036; 83615; 83735; 84100; 84484; 85025; 85027; 85378; 85610; 85730; 93005; 99285; G0378; J1644; J7040

== ENCOUNTER 2016-10-12 11:01 | Emergency (ER) | payer OTHER ==
[2016-10-12 11:02] VITALS: BMI 21.7
[2016-10-12 11:14] VITALS: TEMP 98.2
--- NOTE | 2016-10-12 12:30 | ED PDOC ---
Arrival/HPI - General Chief Complaint: Back Pain Time Seen by Provider: 10/12/16 12:00 Historian: Patient - History of Present Illness Narrative History of Present Illness (Text): 10/12/16 12:25 Charlene Reyes is a 51 year old female, whose past medical history includes diabetes and a hysterectomy, who presents to the emergency department complaining of diffuse lower back pain for 2 days. Patient states that she was carrying heavy bags when her symptoms began, now pain worsens whenever she moves. Patient notes that she experiences associated tingling in her legs to her feet, muscle spasms, and dizziness.Patient has not taken any medication for pain. Patient denies any fever, trauma, falls, urinary symptoms, or any other complaint at this time. PMD: Dr. Oviedo Time/Duration: < week Symptom Onset: Gradual Symptom Course: Worsening Severity Level: Mild Activities at Onset: Light Modifying Factors (Text): Movement worsens pain Context: Home Past Medical History - Provider Review Nursing Documentation Reviewed: Yes - Past History Past History: Non-Contributing - Infectious Disease Hx of Infectious Diseases: None - Tetanus Immunization Tetanus Immunization: Unknown - Cardiac Hx Cardiac Disorders: No - Pulmonary Hx Respiratory Disorders: No - Neurological Hx Neurological Disorder: Yes Hx Dizziness: Yes - HEENT Hx HEENT Disorder: No - Renal Hx Renal Disorder: No - Endocrine/Metabolic Hx Endocrine Disorders: Yes Hx Diabetes Mellitus Type 2: Yes - Hematological/Oncological Hx Blood Disorders: Yes Hx Anemia: Yes - Integumentary Hx Dermatological Disorder: No - Musculoskeletal/Rheumatological Hx Falls: No - Gastrointestinal Hx Gastrointestinal Disorders: Yes Hx Gastroesophageal Reflux: Yes - Genitourinary/Gynecological Hx Genitourinary Disorders: No Hx Urinary Tract Infection: Yes - Psychiatric Hx Psychophysiologic Disorder: No Hx Substance Use: No - Surgical History Hx Hysterectomy: Yes Other/Comment: - Anesthesia Hx Anesthesia: Yes Hx Anesthesia Reactions: No Hx Malignant Hyperthermia: No - Suicidal Assessment Feels Threatened In Home Enviroment: No Family/Social History - Physician Review Nursing Documentation Reviewed: Yes Family/Social History: No Known Family HX Smoking Status: Never Smoked Hx Alcohol Use: No Hx Substance Use: No Hx Substance Use Treatment: No Allergies/Home Meds Allergies/Adverse Reactions: Allergies No Known Allergies Allergy (Verified 10/12/16 11:08) Home Medications: Home Meds Medication Instructions Recorded Confirmed metFORMIN [glucOPHAGE] 500 mg PO DAILY 04/29/16 10/12/16 Review of Systems - Physician Review All systems were reviewed & negative as marked: Yes - Review of Systems Constitutional: absent: Fevers, Night Sweats Eyes: absent: Vision Changes ENT: absent: Hearing Changes Respiratory: absent: SOB, Cough Cardiovascular: absent: Chest Pain Gastrointestinal: absent: Abdominal Pain Genitourinary Female: absent: Dysuria, Frequency, Urine Output Changes Musculoskeletal: Back Pain, Other (tingling in legs to feet) Skin: absent: Rash Neurological: Dizziness Endocrine: absent: Diaphoresis Hemo/Lymphatic: absent: Adenopathy Psychiatric: absent: Depression Physical Exam - Physical Exam Narrative Physical Exam (Text): Constitutional: No acute distress. Head: Normocephalic. Atraumatic. Eyes: PERRL. ENT: Moist mucous membranes. Neck: Supple. Cardiovascular: Regular rate. Chest: No tenderness. Respiratory: Clear to auscultation bilaterally. GI: Soft. Nontender. Nondistended. Back: No CVA tenderness. No midline tenderness. Bilateral paraspinal lumbar tenderness. Musculoskeletal: Sensation to a light touch intact in bilateral legs and saddle area. Steady gait. Motor 5/5 x 4 Skin: No rash. No tenderness or swelling of extremities. Neurologic: Alert, no focal deficit. Vital Signs Reviewed: Yes Vital Signs Temp Pulse Resp BP Pulse Ox 10/12/16 16:04 88 17 109/75 96 10/12/16 15:11 68 17 132/74 99 10/12/16 14:08 89 16 110/80 96 10/12/16 12:24 69 18 134/71 100 10/12/16 11:13 98.2 F 72 16 100 Temperature: Afebrile Blood Pressure: Normal Pulse: Regular Respiratory Rate: Normal Appearance: Positive for: Well-Appearing, Non-Toxic, Comfortable Pain Distress: None Mental Status: Positive for: Alert and Oriented X 3 Medical Decision Making ED Course and Treatment: 10/12/16 11:52 Impression: 51 year old female complaining of diffuse lower back pain after carrying heavy bags for two days. Plan: -- Motrin -- Urinalysis -- Reassess and disposition Prior Visits: Notes and results from previous visits were reviewed. Patient last seen in the ED on 09/27/16 for chest pain. Patient was admitted to hospitalist care for further evaluation. Progress Notes: - Lab Interpretations Lab Results: Lab Results 10/12/16 12:10: Urine Color Yellow, Urine Appearance Sl cloudy, Urine pH 6.0, Ur Specific [place] >= 1.030, Urine Protein Negative, Urine Glucose (UA) Negative, Urine Ketones Negative, Urine Blood Moderate H, Urine Nitrate Negative , Urine Bilirubin Negative, Urine Urobilinogen 0.2, Ur Leukocyte Esterase Negative, Urine RBC 0 - 2, Urine WBC 0 - 2, Ur Epithelial Cells 0 - 2, Urine Bacteria Small, Urine Other Mucus - RAD Interpretation Radiology Orders: 10/12/16 13:27 ABD & PELVIS W/O PO OR IV CONT [CT] Stat - Medication Orders Current Medication Orders: Discontinued Medications Ibuprofen (Motrin Tab) 400 mg PO STAT STA Stop: 10/12/16 12:03 Last Admin: 10/12/16 12:23 Dose: 400 mg ED OBSERVATION Discharge: Yes Date of observation admission: 10/12/16 Time of observation admission: 13:20 - Observation admission statement Patient is being placed in observation because:: back pain - Goals of Observation Goals of observation are:: CT for stone due to hematuria - Progress Note Progress Note: 1320 Patient with improved pain. UA shows hematuria. Will check CT. 15:20 Patient in no acute distress. PROCEDURE: CT Abdomen and Pelvis without contrast. Report Date : 10/12/2016 15:01:48 Mechanical Systems Designer : Lizz Rivas MD IMPRESSION: No acute bowel pathology. Mild fullness of the right renal collecting system. Minimal thickening of the wall of the urinary bladder. Underlying infection can be considered. Correlation with urinary analysis requested. Patient is feeling better. Will discharge home, continue pain medication. UA negative for infection. Culture sent. If not better, instructed f/u with urology. Also instructed to return for leg weakness, numbness, urinary or bowel changes. - Scribe Statement The provider has reviewed the documentation as recorded by the Corbin Smith Provider Scribe Attestation: All medical record entries made by the Scribe were at my direction and personally dictated by me. I have reviewed the chart and agree that the record accurately reflects my personal performance of the history, physical exam, medical decision making, and the department course for this patient. I have also personally directed, reviewed, and agree with the discharge instructions and disposition. Disposition/Present on Arrival - Present on Arrival Any Indicators Present on Arrival: No History of DVT/PE: No History of Uncontrolled Diabetes: No Urinary Catheter: No History of Decub. Ulcer: No History Surgical Site Infection Following: None - Disposition Have Diagnosis and Disposition been Completed?: Yes Diagnosis: Back pain Disposition: HOME/ ROUTINE Disposition Time: 15:56 Patient Plan: Discharge Condition: STABLE Discharge Instructions (ExitCare): Back Pain (ED) Prescriptions: Ibuprofen [Motrin] 1 tab PO Q6 #30 tab Referrals: Tylor Anton MD [Staff Provider] - Follow up with primary
[2016-10-12 12:39] LABS: URINE BILIRUBIN NEGATIVE (NEGATIVE); URINE BLOOD MODERATE (NEGATIVE); URINE GLUCOSE (UA) NEGATIVE (NEGATIVE); URINE KETONE NEGATIVE (NEGATIVE); URINE LEUKOCYTE ESTERASE NEGATIVE Leu/uL (NEGATIVE); URINE PROTEIN NEGATIVE mg/dL (<30 mg/dL); URINE UROBILINOGEN 0.2 E.U./dL (<1 E.U./dL)
[2016-10-12 12:41] LABS: URINE APPEARANCE SL CLOUDY (CLEAR); URINE BACTERIA SMALL (NEG); URINE COLOR YELLOW (YELLOW); URINE EPITHELIAL CELLS 0 - 2 /hpf (0-5); URINE RBC 0 - 2 /hpf (0-2); URINE WBC 0 - 2 /hpf (0-6)
--- NOTE | 2016-10-12 15:03 | CT ---
PROCEDURE: CT Abdomen and Pelvis without contrast. HISTORY: back pain, hematuria COMPARISON: 03/15/2016 TECHNIQUE: Contiguous axial images of the abdomen and pelvis. No oral or IV contrast given. Coronal and Sagittal reformats generated. Please note that due to lack of intravenous and oral contrast, evaluation of soft tissue structures and bowel is limited. Radiation dose: Total exam DLP = 252.40 mGy-cm. This CT exam was performed using one or more of the following dose reduction techniques: Automated exposure control, adjustment of the mA and/or kV according to patient size, and/or use of iterative reconstruction technique. FINDINGS: LOWER THORAX: Mild bibasilar atelectatic changes noted. LIVER: Unremarkable. No gross lesion or ductal dilatation. GALLBLADDER AND BILE DUCTS: Unremarkable. PANCREAS: Unremarkable. No mass. No ductal dilatation. SPLEEN: Unremarkable. No splenomegaly. ADRENALS: Unremarkable. KIDNEYS AND URETERS: Mild fullness of the right renal collecting system. Left kidney appears unremarkable. BLADDER: Mild thickening of the wall of the urinary bladder. REPRODUCTIVE: Please note that evaluation of gynecologic organs is not optimal on CT imaging. Uterus not seen. APPENDIX: No evidence of acute appendicitis. BOWEL: Unremarkable. No obstruction. No gross mural thickening. PERITONEUM: Unremarkable. No fluid collection. No free air. LYMPH NODES: Few lymph nodes in the inguinal regions. Few mesenteric lymph nodes identified which are non enlarged. VASCULATURE: Unremarkable. No aortic aneurysm. BONES: L5 pars defect. Mild degenerative changes. OTHER FINDINGS: None. IMPRESSION: No acute bowel pathology. Mild fullness of the right renal collecting system. Minimal thickening of the wall of the urinary bladder. Underlying infection can be considered. Correlation with urinary analysis requested.
[2016-10-12 15:11] VITALS: RESP 17
[2016-10-12 16:05] VITALS: BP 109/75; PULSE 88; O2SAT 96
== END 2016-10-12 16:06 | disposition home or self-care (01) ==
LOC: ED 11:01
DX: M54.5 Low back pain (principal); E11.9 Type 2 diabetes mellitus without complications

== ENCOUNTER 2016-10-25 22:45 | Observation (INO) | payer OTHER ==
[2016-10-25 22:46] VITALS: BMI 21.4
[2016-10-25 22:56] VITALS: TEMP 98.1
--- NOTE | 2016-10-25 23:11 | ED PDOC ---
Arrival/HPI - General Chief Complaint: Palpitations Time Seen by Provider: 10/25/16 22:48 Historian: Spouse - History of Present Illness Narrative History of Present Illness (Text): 10/25/16 23:08 A 51 year old female, whose past medical history includes hypertension, diabetes and depression, presents to the emergency department with , who is seafood team member as patient's request, complaining of heart palpitations, shortness of breath and chest discomfort. Patient's reports patient's heart rate to be in 90s. Patient does not currently feel palpitations, shortness of breath or chest discomfort. Patient denies any other complaints at this time. Symptom Onset: Sudden Symptom Course: Resolved Activities at Onset: Sleeping Modifying Factors (Text): none Context: Home Past Medical History - Provider Review Nursing Documentation Reviewed: Yes - Past History Past History: Non-Contributing - Infectious Disease Hx of Infectious Diseases: None - Tetanus Immunization Tetanus Immunization: Unknown - Cardiac Hx Cardiac Disorders: No - Pulmonary Hx Respiratory Disorders: No - Neurological Hx Neurological Disorder: Yes Hx Dizziness: Yes - HEENT Hx HEENT Disorder: No - Renal Hx Renal Disorder: No - Endocrine/Metabolic Hx Endocrine Disorders: Yes Hx Diabetes Mellitus Type 2: Yes - Hematological/Oncological Hx Blood Disorders: Yes Hx Anemia: Yes - Integumentary Hx Dermatological Disorder: No - Musculoskeletal/Rheumatological Hx Falls: No - Gastrointestinal Hx Gastrointestinal Disorders: Yes Hx Gastroesophageal Reflux: Yes - Genitourinary/Gynecological Hx Genitourinary Disorders: No Hx Urinary Tract Infection: Yes - Psychiatric Hx Psychophysiologic Disorder: No Hx Substance Use: No - Surgical History Hx Hysterectomy: Yes Other/Comment: - Anesthesia Hx Anesthesia: Yes Hx Anesthesia Reactions: No Hx Malignant Hyperthermia: No - Suicidal Assessment Feels Threatened In Home Enviroment: No Family/Social History - Physician Review Nursing Documentation Reviewed: Yes Family/Social History: No Known Family HX Smoking Status: Never Smoked Hx Alcohol Use: No Hx Substance Use: No Hx Substance Use Treatment: No Allergies/Home Meds Allergies/Adverse Reactions: Allergies No Known Allergies Allergy (Verified 10/12/16 11:08) Home Medications: Home Meds Medication Instructions Recorded Confirmed metFORMIN [glucOPHAGE] 500 mg PO DAILY 04/29/16 10/25/16 Review of Systems - Physician Review All systems were reviewed & negative as marked: Yes Physical Exam - Physical Exam Narrative Physical Exam (Text): 10/25/16 23:11- Review of Systems Constitutional: Normal. absent: Fatigue, Weight Change, Fevers Eyes: Normal ENT: Normal Respiratory: Present: shortness of breath absent: Cough, Sputum Cardiovascular: Present: chest discomfort, palpitations absent: Syncope Gastrointestinal: Normal absent: Abdominal pain, Diarrhea, Nausea, Vomiting Genitourinary: Normal. absent: Dysuria, Frequency, Hematuria Musculoskeletal: Normal. absent: Arthralgias, Back Pain, Neck Pain Skin: Normal Neurological: Normal absent: Focal Weakness Endocrine: Normal Hemo/Lymphatic: Normal Psychiatric: Normal - Physical exam Patient appears age appropriate, speaking full sentences without difficulty. - Systems Exam Head: Present: Atraumatic, Normocephalic Pupils: Present: PERRL Extraocular Muscles: Present: EOMI Conjunctiva: Present: Normal Mouth: Present: Moist Mucous Membranes Neck: Present: Normal Range of Motion. No: MIDLINE TENDERNESS, Paraspinal Tenderness Respiratory/Chest: Present: Clear to Auscultation, Good Air Exchange. No: Respiratory Distress, Accessory Muscle Use, Tachypneic Cardiovascular: Present: Regular Rate and Rhythm, Normal S1, S2, Peripheral Pulses Present. No: Murmurs Abdomen: Present: Normal Bowel Sounds, No: Tenderness, Peritoneal Signs, Rebound, Guarding, Distention Back: Present: Normal Inspection. No: Midline Tenderness, Paraspinal Tenderness Upper Extremity: Present: Normal Inspection. No: Cyanosis, Edema Lower Extremity: Present: Normal Inspection. No: Edema Neurological: Present: GCS=15, Speech Normal, cranial nerves II through XII fully intact with no cerebellar abnormality, neuro-sensory fully intact. No focal neurological deficits. Skin: Present: Warm, Dry, Normal Color. No: Rashes Lymphatic: Present: OX3, NI, NC Psychiatric: Present: Alert, Oriented x 3, Normal Insight, Normal Concentration Vital Signs Reviewed: Yes Vital Signs Temp Pulse Resp BP Pulse Ox 10/26/16 02:28 67 14 110/73 99 10/26/16 00:00 67 16 113/71 98 10/25/16 22:56 98.1 F 72 16 119/72 100 Temperature: Afebrile Blood Pressure: Normal Pulse: Regular Respiratory Rate: Normal Appearance: Positive for: Well-Appearing, Non-Toxic, Comfortable Pain Distress: None Mental Status: Positive for: Alert and Oriented X 3 Medical Decision Making - Lab Interpretations Lab Results: 10/25/16 23:05 10/25/16 23:05 Lab Results 10/25/16 23:05: Sodium 137, Potassium 3.7, Chloride 102, Carbon Dioxide 29, Anion Gap 10, BUN 26 H, Creatinine 0.7, Est GFR ( Amer) > 60, Est GFR ( Non-Af Amer) > 60, Random Glucose 100, Calcium 8.7, Total Bilirubin 0.3, AST 42 H, ALT 51, Alkaline Phosphatase 60, Lactate Dehydrogenase 433, Total Creatine Kinase 80, Troponin I < 0.01, NT-Pro-B Natriuret Pep 138, Total Protein 6.8, Albumin 3.9, Globulin 2.9, Albumin/Globulin Ratio 1.3 10/25/16 23:05: PT 10.8, INR 1.00, APTT 24.9, D-Dimer, Quantitative 0.19 10/25/16 23:05: WBC 6.2, RBC 4.60, Hgb 12.1, Hct 37.3, MCV 81.1, MCH 26.3, MCHC 32.4, RDW 13.6, Plt Count 215, MPV 9.6, Gran % 59.0, Lymph % (Auto) 29.6, [place] % (Auto) 7.4 H, Eos % (Auto) 3.7, Baso % (Auto) 0.3, Gran # 3.65, Lymph # 1.8, [place] # 0.5, Eos # 0.2, Baso # 0.02 I have reviewed the lab results: Yes - RAD Interpretation Radiology Orders: 10/25/16 23:17 CHEST PORTABLE [RAD] Stat - Medication Orders Current Medication Orders: Discontinued Medications Aspirin (Aspirin Chewable) 324 mg PO STAT STA Stop: 10/25/16 23:18 Last Admin: 10/25/16 23:26 Dose: 324 mg ED OBSERVATION Discharge: Yes Date of observation admission: 10/25/16 Time of observation admission: 23:16 - Observation admission statement Patient is being placed in observation because:: chest discomfort, heart palpitations, shortness of breath repeat cardiac enzymes - Progress Note Progress Note: 10/25/16 23:15 Impression: A 51 year old female with heart palpitations, chest discomfort and shortness of breath. On physical exam, no acute findings. Patient symptoms are currently resolved. Patient is asymptomatic. Plan: -- chest xray -- labs -- Aspirin -- Reassess and disposition Prior Visits: Previous patient records reviewed. Patient was seen at end of August for chest pain. Patient been cleared by cardiology after 3 sets of negative troponin. Reviewed previous EKG from 04/29/16, which was unremarkable. pt's HEART score low. 2 sets of cardiac enzymes and an EKG ordered I had a long discussion with patient that our initial evaluation has not shown evidence of a heart attack. Patient verbalized understanding that even if these tests are normal, symptoms may still be a warning sign of a future heart attack and it is very important for patient to arrange outpatient cardiology follow up Patient was agreeable to observation in the emergency room, and understood that this will prolong the length of stay Observation and further evaluation was offered as inpatient, but patient asked to be discharged home with outpatient follow up instead if her cardiac enzymes are negative. EKG interpreted by ER physician. Normal sinus. No ST-segment elevations. Normal intervals. Chest xray interpreted by ED physician shows no pneumothorax, no cardiomegaly, no infiltrates 10/26/16 01:16 Patient is in no acute distress. 10/26/16 02:00 On reevaluation, patient resting comfortably in bed. Patient denies any complaints at this time. 10/26/16 03:10 Patient's second set of cardiac enzymes is negative Patient is currently asymptomatic, denies chest pain, shortness of breath, palpitations. Patient states that she feels comfortable being discharged home with outpatient follow-up. Had a long and extensive d/w patient about f/u with a legislative director for further workup and testing as well as a primary physician. Explained to patient that although his ER w/u did not show any acute abnormalities, patient still needs further testing which may include an echo, stress test, cardiac cath, or others. Pt states she understands to return to the ER right away for new or worsening symptoms or for inability to f/u with PMD or specialist as instructed. Patient states that she fully agrees with and understands discharge instructions. States that she agrees with the plan and disposition. Verbalized and repeated discharge instructions and plan. I have given the patient opportunity to ask any additional questions. Patient's is again acting as an deaf interpreter. Patient has been offered an official deaf interpreter, but refused stating that she feels comfortable with her translating. - Scribe Statement The provider has reviewed the documentation as recorded by the Scribe Sara Cai All medical record entries made by the Masoodibkemar were at my direction and personally dictated by me. I have reviewed the chart and agree that the record accurately reflects my personal performance of the history, physical exam, medical decision making, and the department course for this patient. I have also personally directed, reviewed, and agree with the discharge instructions and disposition. Disposition/Present on Arrival - Present on Arrival Any Indicators Present on Arrival: No History of DVT/PE: No History of Uncontrolled Diabetes: No Urinary Catheter: No History of Decub. Ulcer: No History Surgical Site Infection Following: None - Disposition Have Diagnosis and Disposition been Completed?: Yes Diagnosis: Chest pain Disposition: HOME/ ROUTINE Disposition Time: 23:16 Patient Plan: Discharge Patient Problems: Current Active Problems Problem Status Onset Chest pain Acute Condition: GOOD
[2016-10-25 23:50] LABS: ADD MANUAL DIFF? NO
[2016-10-25 23:53] LABS: BASO # 0.02 K/mm3 (0.0-2.0); BASO % 0.3 % (0.0-3.0); EOS # 0.2 (0.0-0.7); EOS % 3.7 % (1.5-5.0); GRAN # 3.65 (1.4-6.5); HEMATOCRIT 37.3 % (36.0-48.0); LYMPH # 1.8 (1.2-3.4); LYMPH % 29.6 % (22.0-35.0); MEAN CELL VOLUME 81.1 fL (80.0-105.0); MEAN CORPUSCULAR HEMOGLOBIN 26.3 pg (25.0-35.0); MEAN CORPUSCULAR HGB CONC 32.4 g/dl (31.0-37.0); MEAN PLATELET VOLUME 9.6 fl (7.0-11.0); MONO # 0.5 (0.1-0.6); MONO % 7.4 % (1.0-6.0); PLATELET COUNT 215 10^3/uL (120.0-450.0); RED CELL DISTRIBUTION WIDTH 13.6 % (11.5-14.5); WHITE BLOOD COUNT 6.2 10^3/ul (4.5-11.0)
[2016-10-26 00:10] LABS: ALB/GLOB RATIO 1.3 (1.1-1.8); ALKALINE PHOSPHATASE 60 U/L (38-133); ALT/SGPT 51 U/L (7-56); AST/SGOT 42 U/L (15-39); BILIRUBIN,TOTAL 0.3 mg/dL (0.2-1.3); BLOOD UREA NITROGEN 26 mg/dL (7-21); CALCIUM 8.7 mg/dL (8.4-10.5); CARBON DIOXIDE 29 mmol/L (21-33); CHLORIDE 102 mmol/L (98-107); GFR AFRICAN-AMERICAN > 60; GLUCOSE,RANDOM 100 mg/dL (70-110); POTASSIUM 3.7 mmol/L (3.6-5.0); SODIUM 137 mmol/L (132-148); TOTAL PROTEIN 6.8 g/dL (5.8-8.3)
[2016-10-26 00:22] LABS: TROPONIN I < 0.01 ng/mL
[2016-10-26 00:39] LABS: PARTIAL THROMBOPLASTIN TIME 24.9 Seconds (23.7-30.8)
[2016-10-26 01:06] LABS: D DIMER 0.19 mg/L FEU (0-0.50)
[2016-10-26 03:03] LABS: TROPONIN I < 0.01 ng/mL
[2016-10-26 03:42] VITALS: BP 104/63; PULSE 59; RESP 17; O2SAT 100
--- NOTE | 2016-10-26 08:47 | RAD ---
HISTORY: cp COMPARISON: 09/27/2016 FINDINGS: LUNGS: No active pulmonary disease. PLEURA: No significant pleural effusion identified, no pneumothorax apparent. CARDIOVASCULAR: Normal. OSSEOUS STRUCTURES: No significant abnormalities. VISUALIZED UPPER ABDOMEN: Normal. OTHER FINDINGS: None. IMPRESSION: No active disease.
--- NOTE | 2016-10-30 07:58 | CARD ---
APPROVED REPORT EKG Measurement Heart [id number] <Conclusion> Normal sinus rhythm Possible Left atrial enlargement Borderline ECG
== END 2016-10-26 03:12 | disposition home or self-care (01) ==
LOC: ED 22:45 → EROBSV 23:17
PROVIDERS: ADMIT Emergency Medicine; ATTEND Emergency Medicine
DX: R07.9 Chest pain, unspecified (principal)
CPT/HCPCS: 36415; 71010; 80053; 82550; 83615; 83880; 84484; 85025; 85378; 85610; 85730; 99285; G0378

== ENCOUNTER 2016-11-14 01:06 | Emergency (ER) | payer OTHER ==
[2016-11-14 01:06] VITALS: BMI 21.4
[2016-11-14 01:26] VITALS: RESP 16; TEMP 98.2
--- NOTE | 2016-11-14 02:36 | ED PDOC ---
Arrival/HPI <GhazalaAddi - Last Filed: 11/14/16 02:45> - General Historian: Patient <Shari Roe - Last Filed: 11/14/16 07:28> - General Chief Complaint: Back Pain Time Seen by Provider: 11/14/16 02:30 - History of Present Illness Narrative History of Present Illness (Text): 11/14/16 02:33 Patient is a 51 year old F presenting with lower back pain. Patient states the back pain started 2-3 days ago, non radiating. Denies trauma. patient didn't try taking any pain meds at home, didn't see her PMD. Patient states she decided to come in today because she wasn't able to sleep. patient denies bowel or bladder incontinent. Patient is able to ambulate. patient denies falling. Pain is worst when she lies flat. Denies fever chills, dysurea, abdominal pain, cp or sob. (Shari Roe) Past Medical History - Provider Review Nursing Documentation Reviewed: Yes - Travel History Have you recently traveled outside [place] w/in the past 3 mons?: No - Past History Past History: Non-Contributing - Infectious Disease Hx of Infectious Diseases: None - Tetanus Immunization Tetanus Immunization: Unknown - Cardiac Hx Cardiac Disorders: No - Pulmonary Hx Respiratory Disorders: No - Neurological Hx Neurological Disorder: Yes Hx Dizziness: Yes - HEENT Hx HEENT Disorder: No - Renal Hx Renal Disorder: No - Endocrine/Metabolic Hx Endocrine Disorders: Yes Hx Diabetes Mellitus Type 2: Yes - Hematological/Oncological Hx Blood Disorders: Yes Hx Anemia: Yes - Integumentary Hx Dermatological Disorder: No - Musculoskeletal/Rheumatological Hx Falls: No - Gastrointestinal Hx Gastrointestinal Disorders: Yes Hx Gastroesophageal Reflux: Yes - Genitourinary/Gynecological Hx Genitourinary Disorders: No Hx Urinary Tract Infection: Yes - Psychiatric Hx Psychophysiologic Disorder: No Hx Substance Use: No - Surgical History Hx Hysterectomy: Yes Other/Comment: - Anesthesia Hx Anesthesia: Yes Hx Anesthesia Reactions: No Hx Malignant Hyperthermia: No - Suicidal Assessment Feels Threatened In Home Enviroment: No <Shari Roe - Last Filed: 11/14/16 07:28> Family/Social History - Physician Review Nursing Documentation Reviewed: Yes Family/Social History: No Known Family HX Smoking Status: Never Smoked Hx Alcohol Use: No Hx Substance Use: No Hx Substance Use Treatment: No <BhupinderShari - Last Filed: 11/14/16 07:28> Allergies/Home Meds <Addi Vivar - Last Filed: 11/14/16 02:45> <PadmininarinderailynNingShari - Last Filed: 11/14/16 07:28> Allergies/Adverse Reactions: Allergies No Known Allergies Allergy (Verified 10/12/16 11:08) Home Medications: Home Meds Medication Instructions Recorded Confirmed metFORMIN [glucOPHAGE] 500 mg PO DAILY 04/29/16 10/25/16 Review of Systems - Review of Systems Constitutional: Normal Eyes: Normal ENT: Normal Respiratory: Normal Cardiovascular: Normal Gastrointestinal: Normal Genitourinary Female: Normal Musculoskeletal: Back Pain Skin: Normal Neurological: Normal Endocrine: Normal Hemo/Lymphatic: Normal Psychiatric: Normal <PadmininarinderailynShari - Last Filed: 11/14/16 07:28> Physical Exam Vital Signs Reviewed: Yes Temperature: Afebrile Blood Pressure: Normal Pulse: Regular Respiratory Rate: Normal Appearance: Positive for: Well-Appearing, Non-Toxic, Comfortable Pain Distress: Mild Mental Status: Positive for: Alert and Oriented X 3 - Systems Exam Head: Present: Atraumatic, Normocephalic Pupils: Present: PERRL Extroacular Muscles: Present: EOMI Conjunctiva: Present: Normal Mouth: Present: Moist Mucous Membranes Neck: Present: Normal Range of Motion Respiratory/Chest: Present: Clear to Auscultation, Good Air Exchange. No: Respiratory Distress, Accessory Muscle Use, Wheezes, Rales, Retracting, Rhonchi Cardiovascular: Present: Regular Rate and Rhythm, Normal S1, S2. No: Murmurs Abdomen: Present: Normal Bowel Sounds. No: Tenderness, Distention Upper Extremity: Present: Normal Inspection. No: Edema Lower Extremity: Present: Normal Inspection. No: Edema Neurological: Present: GCS=15, CN II-XII Intact, Speech Normal, Motor Func Grossly Intact, Norm Deep Tendon Reflexes, Normal 2Pt Descrimination, Other (+ leg raise. ) Skin: Present: Warm, Dry, Rashes Psychiatric: Present: Alert, Oriented x 3, Normal Insight, Normal Concentration <Shari Roe - Last Filed: 11/14/16 07:28> Vital Signs Temp Pulse Resp BP Pulse Ox 11/14/16 05:03 69 16 107/63 100 11/14/16 01:26 98.2 F 61 16 123/78 100 Medical Decision Making <Addi Vivar - Last Filed: 11/14/16 02:45> Re-evaluation Time: 06:00 Reassessment Condition: Re-examined, Improved - RAD Interpretation Manager Digital: ED Physician (no compression fractures. ) <Shari Roe - Last Filed: 11/14/16 07:28> ED Course and Treatment: Impression: Pt seen and evaluated with medical surgery nurse. Pt presented for lower back pain for the past 2-3 days. pt is able to ambulate without difficulty and notes pain is worse when lying flat. Aware and agree with HPI, clinical findings, plan, and management. Plan: -- XR Lumbar Spine -- Naproxen -- Reassess and disposition (Addi Vivar) 11/14/16 02:37 Patient is a 51 year old F presenting with lower back pain. Likely spinal stenosis versus herniated disc. Plan: will obtain L spine x-ray and will give naproxen for pain. 11/14/16 02:37 11/14/16 06:52 No compression fractures on x-ray. pain improved. (Shari Roe) - RAD Interpretation Radiology Orders: 11/14/16 02:30 LS SPINE WITH OBL > 18 YRS OLD [RAD] Stat - Medication Orders Current Medication Orders: Naproxen (Anaprox Ds) 550 mg PO BID TEVIN Last Admin: 11/14/16 02:58 Dose: 550 mg Discontinued Medications Cyclobenzaprine HCl (Flexeril) 5 mg PO STAT STA Stop: 11/14/16 06:20 - PA / MECHANICAL ORDNANCE ASSEMBLER / Resident Statement / has reviewed & agrees with the documentation as recorded. / has examined the patient and agrees with the treatment plan. <Addi Vivar - Last Filed: 11/14/16 02:45> Disposition/Present on Arrival <Addi Vivar - Last Filed: 11/14/16 02:45> - Present on Arrival Any Indicators Present on Arrival: No History of DVT/PE: No History of Uncontrolled Diabetes: No Urinary Catheter: No History of Decub. Ulcer: No History Surgical Site Infection Following: None - Disposition Have Diagnosis and Disposition been Completed?: Yes Disposition Time: 06:55 Patient Plan: Discharge <Shari Roe - Last Filed: 11/14/16 07:28> - Disposition Diagnosis: Back pain Disposition: HOME/ ROUTINE Condition: GOOD Discharge Instructions (ExitCare): Acute Low Back Pain (ED) Additional Instructions: please follow up with pmd go to the emergency department you have bowel and bladder incontient, fever. Prescriptions: Cyclobenzaprine [Flexeril] 5 mg PO Q6H PRN #30 tab PRN Reason: Muscle Spasm Naproxen 500 mg PO BID PRN #20 tab PRN Reason: Pain, Moderate (4-7)
[2016-11-14] MEDS ORDERED: Naproxen 550 mg Tab PO SCH (02:45)
[2016-11-14 07:12] VITALS: BP 110/65; PULSE 60; O2SAT 98
--- NOTE | 2016-11-14 08:42 | RAD ---
PROCEDURE: Radiographs of the Lumbar Spine. HISTORY: lower back pain COMPARISON: No prior. FINDINGS: BONES: Normal alignment. No listhesis. No fracture. DISC SPACES: Unremarkable. OTHER FINDINGS: There is facet arthropathy at L4-5 and L5-S1 IMPRESSION: Facet arthropathy at L4-5 and L5-S1
== END 2016-11-14 07:13 | disposition home or self-care (01) ==
LOC: ED 01:06
DX: M54.5 Low back pain (principal)

== ENCOUNTER 2016-12-01 00:22 | Observation (INO) | payer OTHER ==
[2016-12-01 00:23] VITALS: BMI 21.4
--- NOTE | 2016-12-01 01:14 | ED PDOC ---
Arrival/HPI - General Chief Complaint: Weakness/Neurological Deficit Time Seen by Provider: 12/01/16 01:07 Historian: Patient - History of Present Illness Narrative History of Present Illness (Text): 12/01/16 01:11 Charlene Reyes is a 51 year old female, whose past medical history includes diabetes, who presents to the emergency department complaining of mid-sternal chest pain since yesterday. Patient reports some neck pain and numbness/ tingling to the left arm and face at times. Patient denies any fever, chills, shortness of breath, abdominal pain, nausea, vomiting, diarrhea, urinary symptoms, back pain, neck pain, headache, dizziness, or any other complaints. PMD: Dr. Tom Cifuentes Time/Duration: Other (yesterday) Symptom Onset: Gradual Symptom Course: Unchanged Activities at Onset: Rest, Light Context: Home Past Medical History - Provider Review Nursing Documentation Reviewed: Yes - Past History Past History: Non-Contributing - Infectious Disease Hx of Infectious Diseases: None - Tetanus Immunization Tetanus Immunization: Unknown - Cardiac Hx Cardiac Disorders: No - Pulmonary Hx Respiratory Disorders: No - Neurological Hx Neurological Disorder: Yes Hx Dizziness: Yes - HEENT Hx HEENT Disorder: No - Renal Hx Renal Disorder: No - Endocrine/Metabolic Hx Endocrine Disorders: Yes Hx Diabetes Mellitus Type 2: Yes - Hematological/Oncological Hx Blood Disorders: Yes Hx Anemia: Yes - Integumentary Hx Dermatological Disorder: No - Musculoskeletal/Rheumatological Hx Falls: No - Gastrointestinal Hx Gastrointestinal Disorders: Yes Hx Gastroesophageal Reflux: Yes - Genitourinary/Gynecological Hx Genitourinary Disorders: No Hx Urinary Tract Infection: Yes - Psychiatric Hx Psychophysiologic Disorder: No Hx Substance Use: No - Surgical History Hx Hysterectomy: Yes Other/Comment: - Anesthesia Hx Anesthesia: Yes Hx Anesthesia Reactions: No Hx Malignant Hyperthermia: No - Suicidal Assessment Feels Threatened In Home Enviroment: No Family/Social History - Physician Review Nursing Documentation Reviewed: Yes Family/Social History: Unknown Family HX Smoking Status: Never Smoked Hx Alcohol Use: No Hx Substance Use: No Hx Substance Use Treatment: No Allergies/Home Meds Allergies/Adverse Reactions: Allergies No Known Allergies Allergy (Verified 12/01/16 00:51) Home Medications: Home Meds Medication Instructions Recorded Confirmed metFORMIN [glucOPHAGE] 500 mg PO DAILY 04/29/16 12/01/16 Review of Systems - Physician Review All systems were reviewed & negative as marked: Yes - Review of Systems Constitutional: Normal. absent: Fevers Eyes: Normal ENT: Normal Respiratory: Normal. absent: SOB, Cough Cardiovascular: Chest Pain Gastrointestinal: Normal. absent: Abdominal Pain, Diarrhea, Nausea, Vomiting Genitourinary Female: Normal. absent: Dysuria, Frequency, Hematuria, Urine Output Changes Musculoskeletal: Neck Pain, Other (+left arm numbness/tingling). absent: Back Pain Skin: Normal Neurological: Normal Endocrine: Normal Hemo/Lymphatic: Normal Psychiatric: Normal Physical Exam Vital Signs Reviewed: Yes Vital Signs Temp Pulse Resp BP Pulse Ox 12/01/16 02:23 57 L 18 116/80 100 12/01/16 00:43 98.3 F 75 20 134/74 98 Temperature: Afebrile Blood Pressure: Normal Pulse: Regular Respiratory Rate: Normal Appearance: Positive for: Well-Appearing, Non-Toxic, Comfortable Pain Distress: None Mental Status: Positive for: Alert and Oriented X 3 - Systems Exam Head: Present: Atraumatic, Normocephalic Pupils: Present: PERRL Extroacular Muscles: Present: EOMI Conjunctiva: Present: Normal Mouth: Present: Moist Mucous Membranes Neck: Present: Normal Range of Motion Respiratory/Chest: Present: Clear to Auscultation, Good Air Exchange. No: Respiratory Distress, Accessory Muscle Use Cardiovascular: Present: Regular Rate and Rhythm, Normal S1, S2. No: Murmurs Abdomen: Present: Normal Bowel Sounds. No: Tenderness, Distention, Peritoneal Signs Back: Present: Normal Inspection Upper Extremity: Present: Normal Inspection. No: Cyanosis, Edema Lower Extremity: Present: Normal Inspection. No: Edema Neurological: Present: GCS=15, CN II-XII Intact, Speech Normal Skin: Present: Warm, Dry, Normal Color. No: Rashes Psychiatric: Present: Alert, Oriented x 3, Normal Insight, Normal Concentration Medical Decision Making ED Course and Treatment: 12/01/16 01:11 Impression: 51 year old female complaining of chest pain, neck pain, and some left-sided arm numbness/tingling. Plan: -- EKG -- CXR -- Labs, cardiac enzymes -- Reassess and disposition Prior Visits: Notes and results from previous visits were reviewed. On 11/14/2016, pt was seen in the emergency department for lower back pain. Pt was d/c home. Progress Notes: Reviewed EKG, NSR at [address]-segment elevations or depressions, no T-wave inversions, normal intervals. 12/01/16 02:50 Case discussed with medical apparatus model maker national investigative producer, who is aware and agrees with plan. 12/01/16 02:[address] Katarina Forman, who is aware and agrees with plan. Accepts pt in to hospitalist service. Pt will go to Telemetry observation for chest pain. Pt is no acute distress. Discussed results and hospital observation plan with pt , who is aware and verbalizes understanding. 12/01/16 02:55 - Lab Interpretations Lab Results: 12/01/16 01:25 12/01/16 01:25 Lab Results 12/01/16 01:25: WBC 5.2, RBC 4.76, Hgb 12.3, Hct 38.9, MCV 81.7, MCH 25.8, MCHC 31.6, RDW 13.2, Plt Count 203, MPV 9.3 12/01/16 01:25: PT 10.9, INR 1.01, APTT 25.7 12/01/16 01:25: Sodium 139, Potassium 3.7, Chloride 101, Carbon Dioxide 30, Anion Gap 12, BUN 17, Creatinine 0.6, Est GFR ( Amer) > 60, Est GFR (Non- Af Amer) > 60, Random Glucose 96, Calcium 9.3, Total Bilirubin 0.4, AST 26, ALT 21, Alkaline Phosphatase 64, Lactate Dehydrogenase 372, Total Creatine Kinase 73 , Troponin I < 0.01, Total Protein 6.9, Albumin 4.0, Globulin 2.9, Albumin/ Globulin Ratio 1.4 I have reviewed the lab results: Yes - RAD Interpretation Radiology Orders: 12/01/16 01:17 CHEST PORTABLE [RAD] Stat Mobile Application Development Lead: ED Physician - EKG Interpretation Interpreted by ED Physician: Yes Type: 12 lead EKG - Scribe Statement The provider has reviewed the documentation as recorded by the Scribe Carolyn Westfall All medical record entries made by the Scribe were at my direction and personally dictated by me. I have reviewed the chart and agree that the record accurately reflects my personal performance of the history, physical exam, medical decision making, and the department course for this patient. I have also personally directed, reviewed, and agree with the discharge instructions and disposition. Disposition/Present on Arrival - Present on Arrival Any Indicators Present on Arrival: No History of DVT/PE: No History of Uncontrolled Diabetes: No Urinary Catheter: No History of Decub. Ulcer: No History Surgical Site Infection Following: None - Disposition Have Diagnosis and Disposition been Completed?: Yes Diagnosis: Chest pain Disposition: HOSPITALIZED Disposition Time: 02:58 Patient Plan: Observation Condition: STABLE Discharge Instructions (ExitCare): Chest Pain (ED) Referrals: Gissell Cifuentes MD [Primary Care Provider] - Follow up with primary
[2016-12-01 01:57] LABS: HEMOGLOBIN 12.3 gm/dL (12.0-16.0); MEAN CELL VOLUME 81.7 fL (80.0-105.0); MEAN CORPUSCULAR HEMOGLOBIN 25.8 pg (25.0-35.0); MEAN CORPUSCULAR HGB CONC 31.6 g/dl (31.0-37.0); MEAN PLATELET VOLUME 9.3 fl (7.0-11.0); RBC 4.76 10^6/uL (3.5-6.1); RED CELL DISTRIBUTION WIDTH 13.2 % (11.5-14.5); WHITE BLOOD COUNT 5.2 10^3/ul (4.5-11.0)
[2016-12-01 02:09] LABS: INR 1.01 (0.93-1.08); PARTIAL THROMBOPLASTIN TIME 25.7 Seconds (23.7-30.8); PROTHROMBIN TIME 10.9 Seconds (9.9-11.8)
[2016-12-01 02:23] LABS: ALB/GLOB RATIO 1.4 (1.1-1.8); ALT/SGPT 21 U/L (7-56); AST/SGOT 26 U/L (15-39); BLOOD UREA NITROGEN 17 mg/dL (7-21); CALCIUM 9.3 mg/dL (8.4-10.5); GFR AFRICAN-AMERICAN > 60; GFR NON-AFRICAN AMERICAN > 60
[2016-12-01 02:35] LABS: TROPONIN I < 0.01 ng/mL
--- NOTE | 2016-12-01 03:05 | CP.PCM.HP ---
History of Present Illness - History of Present Illness History of Present Illness: cc: chest pain HPI: Patient is a 51yo female with past medical history of T2DM that presents c/ o chest pain. She reported the pain is substernal and radiates to the neck. She also reported some left arm numbness/tingling. Patient stated that the pain started yesterday and has been intermittent usually lasting less than 30minutes in duration. She reports that she has had similar complaints in the past for which she had cardiac evaluation which was found to be negative. Denies fever, chills, cough, abdominal pain, nausea, vomiting, focal weakness, numbness, tingling. 12point ROS as per HPI above, otherwise negative PMHx: Diabetes Mellitus, GERD PSHx: Hysterectomy Medications: Metformin 500 mg po qd Allergies: NKDA Social Hx: denies tobacco, alcohol and illicit drug use Family Hx: Multiple sclerosis, congenital heart defect (brother) PMD: Dr. Cifuentes Present on Admission - Present on Admission Any Indicators Present on Admission: No Past Patient History - Infectious Disease Hx of Infectious Diseases: None - Tetanus Immunizations Tetanus Immunization: Unknown - Past Social History Smoking Status: Never Smoked - CARDIAC Hx Cardiac Disorders: No - PULMONARY Hx Respiratory Disorders: No - NEUROLOGICAL Hx Neurological Disorder: Yes Hx Dizziness: Yes - HEENT Hx HEENT Problems: No - RENAL Hx Chronic Kidney Disease: No - ENDOCRINE/METABOLIC Hx Endocrine Disorders: Yes Hx Diabetes Mellitus Type 2: Yes - HEMATOLOGICAL/ONCOLOGICAL Hx Blood Disorders: Yes Hx Anemia: Yes - INTEGUMENTARY Hx Dermatological Problems: No - MUSCULOSKELETAL/RHEUMATOLOGICAL Hx Falls: No - GASTROINTESTINAL Hx Gastrointestinal Disorders: Yes Hx Gastroesophageal Reflux: Yes - GENITOURINARY/GYNECOLOGICAL Hx Genitourinary Disorders: No Hx Urinary Tract Infection: Yes - PSYCHIATRIC Hx Psychophysiologic Disorder: No Hx Substance Use: No - SURGICAL HISTORY Hx Hysterectomy: Yes Other/Comment: - ANESTHESIA Hx Anesthesia: Yes Hx Anesthesia Reactions: No Hx Malignant Hyperthermia: No Meds Allergies/Adverse Reactions: Allergies Allergy/AdvReac Type Severity Reaction Status Date / Time No Known Allergies Allergy Verified 12/01/16 00:51 Physical Exam - Constitutional Appears: Non-toxic, No Acute Distress - Head Exam Head Exam: ATRAUMATIC, NORMAL INSPECTION, NORMOCEPHALIC - Eye Exam Eye Exam: EOMI, PERRL - ENT Exam ENT Exam: Mucous Membranes Moist - Neck Exam Neck exam: Positive for: Normal Inspection - Respiratory Exam Respiratory Exam: Clear to Auscultation Bilateral. absent: Rales, Rhonchi, Wheezes - Cardiovascular Exam Cardiovascular Exam: RRR, +S1, +S2. absent: Gallop, JVD, Rubs - GI/Abdominal Exam GI & Abdominal Exam: Normal Bowel Sounds, Soft. absent: Distended, Firm, Guarding, Rigid, Tenderness - Extremities Exam Extremities exam: Positive for: normal inspection. Negative for: calf tenderness - Neurological Exam Neurological exam: Alert, Oriented x3 - Psychiatric Exam Psychiatric exam: Normal Affect, Normal Mood - Skin Skin Exam: Dry, Intact, Normal Color, Warm Results - Vital Signs Recent Vital Signs: Last Vital Signs Temp 98.3 F 12/01/16 00:43 Pulse 57 L 12/01/16 02:23 Resp 18 12/01/16 02:23 BP 116/80 12/01/16 02:23 Pulse Ox 100 12/01/16 02:23 - Labs Result Diagrams: 12/01/16 01:25 12/01/16 01:25 Labs: Laboratory Results - last 24 hr 12/01/16 12/01/16 12/01/16 01:25 01:25 01:25 WBC 5.2 RBC 4.76 Hgb 12.3 Hct 38.9 MCV 81.7 MCH 25.8 MCHC 31.6 RDW 13.2 Plt Count 203 MPV 9.3 PT 10.9 INR 1.01 APTT 25.7 Sodium 139 Potassium 3.7 Chloride 101 Carbon Dioxide 30 Anion Gap 12 BUN 17 Creatinine 0.6 Est GFR ( Amer) > 60 Est GFR (Non-Af Amer) > 60 Random Glucose 96 Calcium 9.3 Total Bilirubin 0.4 AST 26 ALT 21 Alkaline Phosphatase 64 Lactate Dehydrogenase 372 Total Creatine Kinase 73 Troponin I < 0.01 Total Protein 6.9 Albumin 4.0 Globulin 2.9 Albumin/Globulin Ratio 1.4 Assessment & Plan - Assessment and Plan (Free Text) Plan: 51yo female with history of GERD, DMT2 presents c/o substernal chest pain since yesterday 1. Chest pain r/o ACS -CBC/CMP unremarkable -EKG reviewed; NSR with no acute ST-T wave changes -Troponin negative x1, will trend -ASA 325 given in the ED -Continue ASA 81mg po qd -Telemetry observation -Cardiology consulted - Dr. Ellsworth 2. DM type 2 -Metformin held, continue humulin low dose ISS -Fingersticks ACHS -Consistent carb diet 3. GERD -Continue protonix 40mg IVP qd 4. GI/DVT prophylaxis -Protonix/SCD's Patient seen and case discussed with attending, Dr. Forman - Date & Time Date: 12/01/16 Time: 03:11
[2016-12-01 04:24] LABS: HDL CHOLESTEROL 89 mg/dL (29-60)
[2016-12-01 04:34] LABS: LDL CHOLESTEROL 86 mg/dL (0-129)
[2016-12-01 04:41] VITALS: TEMP 97.9
[2016-12-01 07:40] VITALS: BP 111/69; RESP 19; O2SAT 99
[2016-12-01] MEDS: Insulin Reg-LOW-Coverage SC SCH ×3 (07:46→16:30)
--- NOTE | 2016-12-01 11:23 | CARD ---
APPROVED REPORT EKG Measurement Heart [id number] <Conclusion> Normal sinus rhythm Normal ECG
[2016-12-01 11:24] LABS: TROPONIN I < 0.01 ng/mL
--- NOTE | 2016-12-01 11:36 | RAD ---
HISTORY: chest pain COMPARISON: 04/29/2016 FINDINGS: LUNGS: No active pulmonary disease. PLEURA: No significant pleural effusion identified, no pneumothorax apparent. CARDIOVASCULAR: No radiographic findings to suggest acute or significant cardiovascular disease. OSSEOUS STRUCTURES: No significant abnormalities. VISUALIZED UPPER ABDOMEN: Normal. OTHER FINDINGS: None. IMPRESSION: No active disease. No active disease. No acute/significant interval changes.
--- NOTE | 2016-12-01 15:27 | CP.PCM.DIS ---
<ManjulaRonak - Last Filed: 12/01/16 15:24> Provider - Provider Date of Admission: 12/01/16 02:57 Attending physician: Mey Pierre MD Primary care physician: Gissell Cifuentes MD Consults: Dr. Fuller Time Spent in preparation of Discharge (in minutes): 35 Diagnosis - Discharge Diagnosis (1) Chest pain Status: Chronic Hospital Course - Lab Results Lab Results: Most Recent Lab Values WBC 5.2 10^3/ul (4.5-11.0) 12/01/16 01:25 RBC 4.76 10^6/uL (3.5-6.1) 12/01/16 01:25 Hgb 12.3 gm/dL (12.0-16.0) 12/01/16 01:25 Hct 38.9 % (36.0-48.0) 12/01/16 01:25 MCV 81.7 fL (80.0-105.0) 12/01/16 01:25 MCH 25.8 pg (25.0-35.0) 12/01/16 01:25 MCHC 31.6 g/dl (31.0-37.0) 12/01/16 01:25 RDW 13.2 % (11.5-14.5) 12/01/16 01:25 Plt Count 203 10^3/uL (120.0-450.0) 12/01/16 01:25 MPV 9.3 fl (7.0-11.0) 12/01/16 01:25 PT 10.9 Seconds (9.9-11.8) 12/01/16 01:25 INR 1.01 (0.93-1.08) 12/01/16 01:25 APTT 25.7 Seconds (23.7-30.8) 12/01/16 01:25 Sodium 139 mmol/L (132-148) 12/01/16 01:25 Potassium 3.7 mmol/L (3.6-5.0) 12/01/16 01:25 Chloride 101 mmol/L (98-107) 12/01/16 01:25 Carbon Dioxide 30 mmol/L (21-33) 12/01/16 01:25 Anion Gap 12 (10-20) 12/01/16 01:25 BUN 17 mg/dL (7-21) 12/01/16 01:25 Creatinine 0.6 mg/dL (0.5-1.4) 12/01/16 01:25 Est GFR ( Amer) > 60 12/01/16 01:25 Est GFR (Non-Af Amer) > 60 12/01/16 01:25 POC Glucose (mg/dL) 94 mg/dL (65-110) 12/01/16 11:21 Random Glucose 96 mg/dL (70-110) 12/01/16 01:25 Hemoglobin A1c 6.5 % (4.2-6.5) 12/01/16 01:25 Calcium 9.3 mg/dL (8.4-10.5) 12/01/16 01:25 Total Bilirubin 0.4 mg/dL (0.2-1.3) 12/01/16 01:25 AST 26 U/L (15-39) 12/01/16 01:25 ALT 21 U/L (7-56) 12/01/16 01:25 Alkaline Phosphatase 64 U/L (38-133) 12/01/16 01:25 Lactate Dehydrogenase 348 U/L (333-699) 12/01/16 10:20 Total Creatine Kinase 62 U/L (35-230) 12/01/16 10:20 Troponin I < 0.01 ng/mL 12/01/16 10:20 Total Protein 6.9 g/dL (5.8-8.3) 12/01/16 01:25 Albumin 4.0 g/dL (3.0-4.8) 12/01/16 01:25 Globulin 2.9 gm/dL 12/01/16 01:25 Albumin/Globulin Ratio 1.4 (1.1-1.8) 12/01/16 01:25 Triglycerides 64 mg/dL (35-160) 12/01/16 01:25 Cholesterol 188 mg/dL (130-200) 12/01/16 01:25 LDL Cholesterol Direct 86 mg/dL (0-129) 12/01/16 01:25 HDL Cholesterol 89 mg/dL (29-60) H 12/01/16 01:25 TSH 3rd Generation 1.43 mIU/mL (0.46-4.68) 12/01/16 01:25 - Hospital Course Hospital Course: Patient is a 51yo female with past medical history of T2DM that presents c/o chest pain. She reported the pain is substernal and radiates to the neck. She also reported some left arm numbness/tingling. Patient stated that the pain started yesterday and has been intermittent usually lasting less than 30minutes in duration. She reports that she has had similar complaints in the past for which she had cardiac evaluation which was found to be negative. Denies fever, chills, cough, abdominal pain, nausea, vomiting, focal weakness, numbness, tingling. The patient was admitted for chest pain r/o acs. Initial evaluation with EKG revealed no acute ischemic changes. Serial troponins were negative. Chest pain is reproducible with palpation. Patient had a normal stress test within the past year. Cardiology was consulted and determined the patient to be stable and not suffering from ACS. Patient will f.u with Dr. Fuller for outpatient stress testing. Patient was instructed on this. She was instructed that her heart is healthy and that these feelings may be due to anxiety. Discharge Exam - Head Exam Head Exam: ATRAUMATIC, NORMAL INSPECTION, NORMOCEPHALIC - Eye Exam Eye Exam: EOMI, PERRL - ENT Exam ENT Exam: Mucous Membranes Moist - Respiratory Exam Respiratory Exam: Clear to PA & Lateral. absent: Rales, Rhonchi, Wheezes - Cardiovascular Exam Cardiovascular Exam: +S1, +S2 - GI/Abdominal Exam GI & Abdominal Exam: Normal Bowel Sounds, Unremarkable - Neurological Exam Neurological exam: Alert, Oriented x3 - Psychiatric Exam Psychiatric exam: Normal Affect, Normal Mood - Skin Skin Exam: Dry, Warm Discharge Plan - Follow Up Plan Condition: STABLE Disposition: HOME/ ROUTINE Instructions: Hyperlipidemia (GEN) Additional Instructions: Please see Dr. Cifuentes within 3 to 4 days for further treatment of your medical problems. Please call Dr. Fuller's office tomorrow to schedule a cardiac stress test. His number is provided. Referrals: Gissell Cifuentes MD [Primary Care Provider] - Mey Fuller MD [Staff Provider] - <Cande Frances - Last Filed: 12/01/16 18:49> Provider - Provider Date of Admission: 12/01/16 02:57 Attending physician: Mey Pierre MD Primary care physician: Gissell Cifuentes MD Hospital Course - Lab Results Lab Results: Most Recent Lab Values WBC 5.2 10^3/ul (4.5-11.0) 12/01/16 01:25 RBC 4.76 10^6/uL (3.5-6.1) 12/01/16 01:25 Hgb 12.3 gm/dL (12.0-16.0) 12/01/16 01:25 Hct 38.9 % (36.0-48.0) 12/01/16 01:25 MCV 81.7 fL (80.0-105.0) 12/01/16 01:25 MCH 25.8 pg (25.0-35.0) 12/01/16 01:25 MCHC 31.6 g/dl (31.0-37.0) 12/01/16 01:25 RDW 13.2 % (11.5-14.5) 12/01/16 01:25 Plt Count 203 10^3/uL (120.0-450.0) 12/01/16 01:25 MPV 9.3 fl (7.0-11.0) 12/01/16 01:25 PT 10.9 Seconds (9.9-11.8) 12/01/16 01:25 INR 1.01 (0.93-1.08) 12/01/16 01:25 APTT 25.7 Seconds (23.7-30.8) 12/01/16 01:25 Sodium 139 mmol/L (132-148) 12/01/16 01:25 Potassium 3.7 mmol/L (3.6-5.0) 12/01/16 01:25 Chloride 101 mmol/L (98-107) 12/01/16 01:25 Carbon Dioxide 30 mmol/L (21-33) 12/01/16 01:25 Anion Gap 12 (10-20) 12/01/16 01:25 BUN 17 mg/dL (7-21) 12/01/16 01:25 Creatinine 0.6 mg/dL (0.5-1.4) 12/01/16 01:25 Est GFR ( Amer) > 60 12/01/16 01:25 Est GFR (Non-Af Amer) > 60 12/01/16 01:25 POC Glucose (mg/dL) 101 mg/dL (65-110) 12/01/16 16:18 Random Glucose 96 mg/dL (70-110) 12/01/16 01:25 Hemoglobin A1c 6.5 % (4.2-6.5) 12/01/16 01:25 Calcium 9.3 mg/dL (8.4-10.5) 12/01/16 01:25 Total Bilirubin 0.4 mg/dL (0.2-1.3) 12/01/16 01:25 AST 26 U/L (15-39) 12/01/16 01:25 ALT 21 U/L (7-56) 12/01/16 01:25 Alkaline Phosphatase 64 U/L (38-133) 12/01/16 01:25 Lactate Dehydrogenase 348 U/L (333-699) 12/01/16 10:20 Total Creatine Kinase 62 U/L (35-230) 12/01/16 10:20 Troponin I < 0.01 ng/mL 12/01/16 10:20 Total Protein 6.9 g/dL (5.8-8.3) 12/01/16 01:25 Albumin 4.0 g/dL (3.0-4.8) 12/01/16 01:25 Globulin 2.9 gm/dL 12/01/16 01:25 Albumin/Globulin Ratio 1.4 (1.1-1.8) 12/01/16 01:25 Triglycerides 64 mg/dL (35-160) 12/01/16 01:25 Cholesterol 188 mg/dL (130-200) 12/01/16 01:25 LDL Cholesterol Direct 86 mg/dL (0-129) 12/01/16 01:25 HDL Cholesterol 89 mg/dL (29-60) H 12/01/16 01:25 TSH 3rd Generation 1.43 mIU/mL (0.46-4.68) 12/01/16 01:25 Attending/Attestation - Attestation I have personally seen and examined this patient.: Yes I have fully participated in the care of the patient.: Yes I have reviewed all pertinent clinical information, including history, physical exam and plan: Yes Notes (Text): 12/01/16 18:47 Patient seen and examined at bedside. Asymptomatic and in no distress. ACS ruled out. In the absence of any positive findings and a recent normal stress test at [facility] and [facility] at [facility], ACS unlikely. Symptoms are more MSK and reproducible plus component of anxiety is noted as well. Advised to follow up with and her business solutions architect as an outpatient as needed.
[2016-12-01 18:11] VITALS: PULSE 70
== END 2016-12-01 17:59 | disposition home or self-care (01) ==
LOC: ED 00:22 → ERH 02:57 → 3RNO 04:15
PROVIDERS: ADMIT Internal Medicine; ATTEND Internal Medicine
DX: R07.89 Other chest pain (principal); F41.9 Anxiety disorder, unspecified; E11.9 Type 2 diabetes mellitus without complications; K21.9 Gastro-esophageal reflux disease without esophagitis; D64.9 Anemia, unspecified; Z87.440 Personal history of urinary (tract) infections; Z90.710 Acquired absence of both cervix and uterus; Z82.0 Family history of epilepsy and other diseases of the nervous system; Z79.84 Long term (current) use of oral hypoglycemic drugs; R40.2412 Glasgow coma scale score 13-15, at arrival to emergency department; Z82.49 Family history of ischemic heart disease and other diseases of the circulatory system
CPT/HCPCS: 71010; 80053; 80061; 82550; 82948; 83036; 83615; 84443; 84484; 85027; 85610; 85730; 93005; 96374; 99285; C9113; G0378

== ENCOUNTER 2016-12-21 00:37 | Emergency (ER) | payer OTHER ==
[2016-12-21 00:50] VITALS: BMI 23.0
[2016-12-21 00:57] VITALS: RESP 16; TEMP 97.9
--- NOTE | 2016-12-21 01:25 | ED PDOC ---
Arrival/HPI - General Chief Complaint: Back Pain Time Seen by Provider: 12/21/16 00:50 Historian: Patient - History of Present Illness Narrative History of Present Illness (Text): 12/21/16 01:26 A 51 year old female, whose past medical history includes diabetes, presents to the emergency department complaining of right sided back pain since yesterday. Patient has been to ER multiple times before for same pain. Patient states pain is constant since yesterday. Reports taking ibuprofen with no relief. Patient reports has a scheduled MRI in five days. Patient took medications this morning , about 12 hours ago. Denies saddle anesthesia, fever, dysuria, urinary or bowel symptoms, trauma, numbness, weakness, or any other complaints at this time. Patient is ambulatory. PMD: Dr. Cifuentes Symptom Onset: Sudden Symptom Course: Unchanged Activities at Onset: Rest Context: Home Past Medical History - Provider Review Nursing Documentation Reviewed: Yes - Past History Past History: Non-Contributing - Infectious Disease Hx of Infectious Diseases: None - Tetanus Immunization Tetanus Immunization: Unknown - Cardiac Hx Cardiac Disorders: No - Pulmonary Hx Respiratory Disorders: No - Neurological Hx Neurological Disorder: Yes Hx Dizziness: Yes - HEENT Hx HEENT Disorder: No - Renal Hx Renal Disorder: No - Endocrine/Metabolic Hx Endocrine Disorders: Yes Hx Diabetes Mellitus Type 2: Yes - Hematological/Oncological Hx Blood Disorders: Yes Hx Anemia: Yes - Integumentary Hx Dermatological Disorder: No - Musculoskeletal/Rheumatological Hx Falls: No - Gastrointestinal Hx Gastrointestinal Disorders: Yes Hx Gastroesophageal Reflux: Yes - Genitourinary/Gynecological Hx Genitourinary Disorders: No Hx Urinary Tract Infection: Yes - Psychiatric Hx Psychophysiologic Disorder: No Hx Substance Use: No - Surgical History Hx Hysterectomy: Yes Other/Comment: - Anesthesia Hx Anesthesia: Yes Hx Anesthesia Reactions: No Hx Malignant Hyperthermia: No - Suicidal Assessment Feels Threatened In Home Enviroment: No Family/Social History - Physician Review Nursing Documentation Reviewed: Yes Family/Social History: No Known Family HX Smoking Status: Never Smoked Hx Alcohol Use: No Hx Substance Use: No Hx Substance Use Treatment: No Allergies/Home Meds Allergies/Adverse Reactions: Allergies No Known Allergies Allergy (Verified 12/21/16 00:50) Home Medications: Home Meds Medication Instructions Recorded Confirmed metFORMIN [glucOPHAGE] 500 mg PO DAILY 04/29/16 12/21/16 Review of Systems - Physician Review All systems were reviewed & negative as marked: Yes - Review of Systems Constitutional: absent: Fevers Genitourinary Female: absent: Dysuria Musculoskeletal: Back Pain (right sided) Physical Exam - Physical Exam Narrative Physical Exam (Text): 12/21/16 01:25 Constitutional: No acute distress. Head: Normocephalic. Atraumatic. Eyes: PERRL. ENT: Moist mucous membranes. Neck: Supple. Cardiovascular: Regular rate. Chest: No tenderness. Respiratory: Clear to auscultation bilaterally. GI: Soft. Nontender. Nondistended. Back: No CVA tenderness. No midline tenderness. Musculoskeletal: No tenderness or swelling of extremities. Skin: No rash. Neurologic: Alert, no focal deficit. Motor 5/5 x 4. Sensation to light touch intact in bilateral legs and saddle area. Vital Signs Reviewed: Yes Vital Signs Temp Pulse Resp BP Pulse Ox 12/21/16 02:22 63 16 100/74 99 12/21/16 00:56 97.9 F 68 16 119/70 100 Temperature: Afebrile Blood Pressure: Normal Pulse: Regular Respiratory Rate: Normal Appearance: Positive for: Well-Appearing, Non-Toxic, Comfortable Pain Distress: None Mental Status: Positive for: Alert and Oriented X 3 Medical Decision Making ED Course and Treatment: 12/21/16 01:20 Impression: A 51 year old female with right sided back pain. Plan: -- Toradol -- Reassess and disposition Prior Visits: Notes and results from previous visits were reviewed. Patient was last seen in the emergency department on 12/01/16 for evaluation of mid-sternal chest pain. Patient admitted to telemetry observation for chest pain. Progress Notes: Patient in no distress. requests muscle relaxant and pain cream. Keep appointment for MRI, return to ER for fever, numbness, weakness, urinary or bowel changes. - Medication Orders Current Medication Orders: Discontinued Medications Ketorolac Tromethamine (Toradol) 60 mg IM STAT STA Stop: 12/21/16 00:59 Last Admin: 12/21/16 01:16 Dose: 60 mg - Scribe Statement The provider has reviewed the documentation as recorded by the Corbin Cai Provider Scribe Attestation: All medical record entries made by the Corbin were at my direction and personally dictated by me. I have reviewed the chart and agree that the record accurately reflects my personal performance of the history, physical exam, medical decision making, and the department course for this patient. I have also personally directed, reviewed, and agree with the discharge instructions and disposition. Disposition/Present on Arrival - Present on Arrival Any Indicators Present on Arrival: No History of DVT/PE: No History of Uncontrolled Diabetes: No Urinary Catheter: No History of Decub. Ulcer: No History Surgical Site Infection Following: None - Disposition Have Diagnosis and Disposition been Completed?: Yes Diagnosis: Back pain Disposition: HOME/ ROUTINE Disposition Time: 02:35 Patient Plan: Discharge Condition: STABLE Discharge Instructions (ExitCare): Back Pain (ED) Prescriptions: Acetaminophen [Tylenol 325mg tab] 2 tab PO Q4H #30 tab Ibuprofen [Motrin] 600 mg PO Q6 #25 tab Methocarbamol [Robaxin-750] 1 tab PO Q8H #12 tablet Methyl Salicylate/Menthol [Bengay Greaseless 10%-15%] 1 appl TOP QID #57 g
[2016-12-21 02:23] VITALS: BP 100/74; PULSE 63; O2SAT 99
== END 2016-12-21 02:42 | disposition home or self-care (01) ==
LOC: ED 00:37
DX: M54.9 Dorsalgia, unspecified (principal)
CPT/HCPCS: 96372; 99283; J1885

== ENCOUNTER 2017-05-26 20:32 | Emergency (ER) | payer OTHER ==
[2017-05-26 20:33] VITALS: BMI 23.8
--- NOTE | 2017-05-26 20:53 | ED PDOC ---
Arrival/HPI - General Chief Complaint: Chest Pain Time Seen by Provider: 05/26/17 20:33 - History of Present Illness Narrative History of Present Illness (Text): 05/26/17 20:50 52 yo female, hx of htn, hld, presents with cp. as per pt, has had for a few days. left sided cp, shart, intermittant pain. no fevers, cough, n/v/d, sob, urianry changes, currently pain free. Past Medical History - Past History Past History: Non-Contributing - Infectious Disease Hx of Infectious Diseases: None - Tetanus Immunization Tetanus Immunization: Unknown - Cardiac Hx Cardiac Disorders: No - Pulmonary Hx Respiratory Disorders: No - Neurological Hx Neurological Disorder: Yes Hx Dizziness: Yes - HEENT Hx HEENT Disorder: No - Renal Hx Renal Disorder: No - Endocrine/Metabolic Hx Endocrine Disorders: Yes Hx Diabetes Mellitus Type 2: Yes - Hematological/Oncological Hx Blood Disorders: Yes Hx Anemia: Yes - Integumentary Hx Dermatological Disorder: No - Musculoskeletal/Rheumatological Hx Falls: No - Gastrointestinal Hx Gastrointestinal Disorders: Yes Hx Gastroesophageal Reflux: Yes - Genitourinary/Gynecological Hx Genitourinary Disorders: No Hx Urinary Tract Infection: Yes - Psychiatric Hx Psychophysiologic Disorder: No Hx Substance Use: No - Surgical History Hx Hysterectomy: Yes Other/Comment: - Anesthesia Hx Anesthesia: Yes Hx Anesthesia Reactions: No Hx Malignant Hyperthermia: No - Suicidal Assessment Feels Threatened In Home Enviroment: No Family/Social History - Physician Review Nursing Documentation Reviewed: Yes Family/Social History: Unknown Family HX Smoking Status: Never Smoked Hx Alcohol Use: No Hx Substance Use: No Hx Substance Use Treatment: No Allergies/Home Meds Allergies/Adverse Reactions: Allergies No Known Allergies Allergy (Verified 12/21/16 00:50) Home Medications: Home Meds Medication Instructions Recorded Confirmed metFORMIN [glucOPHAGE] 500 mg PO DAILY 04/29/16 12/21/16 Review of Systems - Review of Systems Constitutional: Normal Eyes: Normal ENT: Normal Respiratory: Normal Cardiovascular: Chest Pain Gastrointestinal: Normal Genitourinary Female: Normal Musculoskeletal: Normal Skin: Normal Neurological: Normal Endocrine: Normal Hemo/Lymphatic: Normal Psychiatric: Normal Physical Exam Vital Signs Temp Pulse Resp BP Pulse Ox 05/26/17 20:32 98.2 F 58 L 18 112/68 97 Temperature: Afebrile Blood Pressure: Normal Pulse: Regular Respiratory Rate: Normal Appearance: Positive for: Well-Appearing, Non-Toxic, Comfortable Pain Distress: None Mental Status: Positive for: Alert and Oriented X 3 - Systems Exam Head: Present: Atraumatic, Normocephalic Pupils: Present: PERRL Extroacular Muscles: Present: EOMI Conjunctiva: Present: Normal Mouth: Present: Moist Mucous Membranes Neck: Present: Normal Range of Motion Respiratory/Chest: Present: Clear to Auscultation, Good Air Exchange. No: Respiratory Distress, Accessory Muscle Use Cardiovascular: Present: Regular Rate and Rhythm, Normal S1, S2. No: Murmurs Abdomen: Present: Normal Bowel Sounds. No: Tenderness, Distention, Peritoneal Signs Back: Present: Normal Inspection Upper Extremity: Present: Normal Inspection. No: Cyanosis, Edema Lower Extremity: Present: Normal Inspection. No: Edema, CALF TENDERNESS, Swelling Neurological: Present: GCS=15, CN II-XII Intact, Speech Normal Skin: Present: Warm, Dry, Normal Color. No: Rashes Psychiatric: Present: Alert, Oriented x 3, Normal Insight, Normal Concentration Medical Decision Making ED Course and Treatment: 05/26/17 20:52 atypical cp. reports neg stress 1 yr ago. multiple visits for similar. ekg sinus nadja [address] t wave changes. labs imaging pending. 05/26/17 21:54 atypical pain multiple admission for similar. recent neg stress. pain for few days, trop neg. cxr neg as read by me. stable for outpt management. - Lab Interpretations Lab Results: 05/26/17 20:50 05/26/17 20:50 Lab Results 05/26/17 20:50: Sodium 141, Potassium 3.7, Chloride 104, Carbon Dioxide 26, Anion Gap 14, BUN 18, Creatinine 0.8, Est GFR ( Amer) > 60, Est GFR (Non- Af Amer) > 60, Random Glucose 105, Calcium 9.4, Magnesium 1.7, Total Bilirubin 0.3, AST 26, ALT 22, Alkaline Phosphatase 61, Lactate Dehydrogenase 382, Total Creatine Kinase 81, Troponin I < 0.01, Total Protein 7.3, Albumin 4.3, Globulin 3.0, Albumin/Globulin Ratio 1.5 05/26/17 20:50: PT 12.5, INR 1.14 H, APTT 30.0 05/26/17 20:50: WBC 5.6, RBC 5.05, Hgb 13.0, Hct 41.4, MCV 82.0, MCH 25.7, MCHC 31.4, RDW 13.4, Plt Count 198, MPV 9.9, Gran % 55.6, Lymph % (Auto) 34.8, Steele % (Auto) 5.5, Eos % (Auto) 3.6, Baso % (Auto) 0.5, Gran # 3.13, Lymph # 2.0, Steele # 0.3, Eos # 0.2, Baso # 0.03 - RAD Interpretation Radiology Orders: 05/26/17 20:51 CHEST PORTABLE [RAD] Stat Disposition/Present on Arrival - Present on Arrival Any Indicators Present on Arrival: No History of DVT/PE: No History of Uncontrolled Diabetes: No Urinary Catheter: No History of Decub. Ulcer: No History Surgical Site Infection Following: None - Disposition Have Diagnosis and Disposition been Completed?: Yes Diagnosis: Chest pain Disposition: HOME/ ROUTINE Disposition Time: 10:00 Patient Problems: Current Active Problems Problem Status Onset Chest pain Chronic Condition: STABLE Discharge Instructions (ExitCare): Chest Pain (ED) Additional Instructions: follow up with specialist. return to er with any worsening symptoms or concerns. Referrals: Mey Crocker MD [Staff Provider] - Follow up with primary Lloyd Antoine MD [Primary Care Provider] - Follow up with primary [facility] [Outside] - Follow up with primary [facility] [Outside] - Follow up with primary Forms: [employer] (Yi)
[2017-05-26 21:07] LABS: BASO # 0.03 K/mm3 (0.0-2.0); BASO % 0.5 % (0.0-3.0); EOS # 0.2 (0.0-0.7); EOS % 3.6 % (1.5-5.0); GRAN # 3.13 (1.4-6.5); GRAN % 55.6 % (50.0-68.0); HEMATOCRIT 41.4 % (36.0-48.0); LYMPH % 34.8 % (22.0-35.0); MEAN CORPUSCULAR HEMOGLOBIN 25.7 pg (25.0-35.0); MEAN CORPUSCULAR HGB CONC 31.4 g/dl (31.0-37.0); MEAN PLATELET VOLUME 9.9 fl (7.0-11.0); MONO # 0.3 (0.1-0.6); MONO % 5.5 % (1.0-6.0); RED CELL DISTRIBUTION WIDTH 13.4 % (11.5-14.5); WHITE BLOOD COUNT 5.6 10^3/ul (4.5-11.0)
[2017-05-26 21:08] VITALS: RESP 18; TEMP 98.2
[2017-05-26 21:20] LABS: INR 1.14 (0.93-1.08)
[2017-05-26 21:24] LABS: ALB/GLOB RATIO 1.5 (1.1-1.8); ALKALINE PHOSPHATASE 61 U/L (38-126); ALT/SGPT 22 U/L (7-56); AST/SGOT 26 U/L (14-36); BILIRUBIN,TOTAL 0.3 mg/dL (0.2-1.3); BLOOD UREA NITROGEN 18 mg/dL (7-21); CALCIUM 9.4 mg/dL (8.4-10.5); CARBON DIOXIDE 26 mmol/L (21-33); CHLORIDE 104 mmol/L (98-107); GFR AFRICAN-AMERICAN > 60; GLUCOSE,RANDOM 105 mg/dL (70-110); MAGNESIUM 1.7 mg/dL (1.7-2.2); POTASSIUM 3.7 mmol/L (3.6-5.0); SODIUM 141 mmol/L (132-148); TOTAL PROTEIN 7.3 g/dL (5.8-8.3)
[2017-05-26 21:35] LABS: TROPONIN I < 0.01 ng/mL
[2017-05-26 22:01] VITALS: BP 115/78; PULSE 60; O2SAT 98
[2017-05-26 22:02] LABS: URINE BILIRUBIN NEGATIVE (NEGATIVE); URINE BLOOD SMALL (NEGATIVE); URINE GLUCOSE (UA) NEGATIVE (NEGATIVE); URINE KETONE NEGATIVE (NEGATIVE); URINE LEUKOCYTE ESTERASE MODERATE Leu/uL (NEGATIVE); URINE PROTEIN NEGATIVE mg/dL (<30 mg/dL); URINE UROBILINOGEN 0.2 E.U./dL (<1 E.U./dL)
[2017-05-26 22:11] LABS: URINE APPEARANCE SL CLOUDY (CLEAR); URINE COLOR YELLOW (YELLOW)
[2017-05-26 22:13] LABS: URINE WBC TNTC /hpf (0-6)
[2017-05-26 22:14] LABS: URINE BACTERIA MANY (NEG)
--- NOTE | 2017-05-27 09:35 | RAD ---
HISTORY: Chest pain. Portable study 09:03. COMPARISON: 12/01/2016. FINDINGS: LUNGS: No active pulmonary disease. PLEURA: No significant pleural effusion identified, no pneumothorax apparent. CARDIOVASCULAR: No radiographic findings to suggest acute or significant cardiovascular disease. OSSEOUS STRUCTURES: No significant abnormalities. VISUALIZED UPPER ABDOMEN: Normal. OTHER FINDINGS: None. IMPRESSION: No active disease. No significant interval change compared to the prior examination(s). Concordant results with the preliminary interpretation rendered by the emergency department physician procedure.
--- NOTE | 2017-05-27 17:26 | CARD ---
APPROVED REPORT EKG Measurement Heart [id number] <Conclusion> Sinus bradycardia Possible Left atrial enlargement Borderline ECG
== END 2017-05-26 21:59 | disposition home or self-care (01) ==
LOC: ED 20:32
DX: R07.9 Chest pain, unspecified (principal); E11.9 Type 2 diabetes mellitus without complications; E78.5 Hyperlipidemia, unspecified; I10 Essential (primary) hypertension; Z79.84 Long term (current) use of oral hypoglycemic drugs

== ENCOUNTER 2017-07-26 16:45 | Emergency (ER) | payer OTHER ==
[2017-07-26 16:49] VITALS: BMI 22.1
[2017-07-26 16:50] VITALS: RESP 18
--- NOTE | 2017-07-26 17:06 | ED PDOC ---
Arrival/HPI - General Chief Complaint: Headache Time Seen by Provider: 07/26/17 16:56 Historian: Patient, Family, Header Up (Daughter translates) - History of Present Illness Time/Duration: Other (3 or 4 days) Symptom Onset: Gradual Symptom Course: Worsening Severity Level: Mild Activities at Onset: Rest Associated Symptoms (Text): 07/26/17 17:04 Several-day history of cough congestion URI symptoms yellow sputum production and chest discomfort. Yellow nasal discharge with sinus congestion. She developed a temperature of 102 just prior to arrival prompting her visit. She does not appear ill or in any distress. No wheezing or shortness of breath. Past Medical History - Past History Past History: Non-Contributing - Infectious Disease Hx of Infectious Diseases: None - Tetanus Immunization Tetanus Immunization: Unknown - Cardiac Hx Cardiac Disorders: No - Pulmonary Hx Respiratory Disorders: No - Neurological Hx Neurological Disorder: Yes Hx Dizziness: Yes - HEENT Hx HEENT Disorder: No - Renal Hx Renal Disorder: No - Endocrine/Metabolic Hx Endocrine Disorders: Yes Hx Diabetes Mellitus Type 2: Yes - Hematological/Oncological Hx Blood Disorders: Yes Hx Anemia: Yes - Integumentary Hx Dermatological Disorder: No - Musculoskeletal/Rheumatological Hx Falls: No - Gastrointestinal Hx Gastrointestinal Disorders: Yes Hx Gastroesophageal Reflux: Yes - Genitourinary/Gynecological Hx Genitourinary Disorders: No Hx Urinary Tract Infection: Yes - Psychiatric Hx Psychophysiologic Disorder: No Hx Substance Use: No - Surgical History Hx Hysterectomy: Yes Other/Comment: - Anesthesia Hx Anesthesia: Yes Hx Anesthesia Reactions: No Hx Malignant Hyperthermia: No - Suicidal Assessment Feels Threatened In Home Enviroment: No Family/Social History - Physician Review Nursing Documentation Reviewed: Yes Family/Social History: Unknown Family HX Smoking Status: Never Smoked Hx Alcohol Use: No Hx Substance Use: No Hx Substance Use Treatment: No Allergies/Home Meds Allergies/Adverse Reactions: Allergies No Known Allergies Allergy (Verified 07/26/17 16:48) Home Medications: Home Meds Medication Instructions Recorded Confirmed metFORMIN [glucOPHAGE] 500 mg PO DAILY 04/29/16 07/26/17 Review of Systems - Physician Review All systems were reviewed & negative as marked: Yes - Review of Systems Constitutional: Fevers ENT: Sinus Congestion. absent: Sore Throat Respiratory: Cough, Sputum. absent: SOB, Wheezing Cardiovascular: Chest Pain. absent: Palpitations, Syncope Gastrointestinal: absent: Abdominal Pain, Nausea, Vomiting Neurological: Headache. absent: Dizziness, Focal Weakness, Gait Changes Physical Exam Vital Signs Temp Pulse Resp BP Pulse Ox 07/26/17 16:50 99.9 F H 92 H 18 123/77 97 Temperature: Afebrile Blood Pressure: Normal Pulse: Regular Respiratory Rate: Normal Appearance: Positive for: Well-Appearing, Non-Toxic, Comfortable Pain Distress: None Mental Status: Positive for: Alert and Oriented X 3 - Systems Exam Head: Present: Atraumatic, Normocephalic Pupils: Present: PERRL Extroacular Muscles: Present: EOMI Conjunctiva: Present: Normal Ears: Present: NORMAL TM, Normal Canal. No: Erythema Mouth: Present: Moist Mucous Membranes Pharnyx: No: ERYTHEMA, EXUDATE, TONSILS ENLARGED Neck: Present: Normal Range of Motion Respiratory/Chest: Present: Clear to Auscultation, Good Air Exchange. No: Respiratory Distress, Accessory Muscle Use Cardiovascular: Present: Regular Rate and Rhythm, Normal S1, S2. No: Murmurs Skin: Present: Warm, Dry, Normal Color. No: Rashes Medical Decision Making ED Course and Treatment: 07/26/17 17:06 Symptoms may represent the flu with onset of fever just prior to arrival. Patient also has myalgias and arthralgias. It is too late to treat with Tamiflu as she has been ill for several days. She may have developed an underlying bronchitis and will be treated with amoxicillin. Follow-up with PMD. Follow up in the ER as needed. Disposition/Present on Arrival - Present on Arrival Any Indicators Present on Arrival: No History of DVT/PE: No History of Uncontrolled Diabetes: No Urinary Catheter: No History of Decub. Ulcer: No History Surgical Site Infection Following: None - Disposition Have Diagnosis and Disposition been Completed?: Yes Diagnosis: Bronchitis, Fever Disposition: HOME/ ROUTINE Disposition Time: 17:07 Patient Plan: Discharge Condition: GOOD Discharge Instructions (ExitCare): Acute Bronchitis, Fever, Adult (DC) Additional Instructions: Tylenol or Advil as directed on bottle as needed. Symptomatic treatment. Follow- up with PMD. Follow up in the ER as needed. Prescriptions: Amoxicillin [Amoxil 250 mg Cap] 250 mg PO TID #21 cap Benzonatate [Tessalon Perles] 100 mg PO Q8 #30 sgl
[2017-07-26 17:22] VITALS: BP 120/68; PULSE 81; TEMP 99.8; O2SAT 100
== END 2017-07-26 17:21 | disposition home or self-care (01) ==
LOC: ED 16:45
DX: J20.9 Acute bronchitis, unspecified (principal); R50.9 Fever, unspecified

== ENCOUNTER 2017-09-30 18:11 | Emergency (ER) | payer OTHER ==
[2017-09-30 18:11] VITALS: BMI 22.1
[2017-09-30 18:42] VITALS: RESP 18; TEMP 98.6
[2017-09-30 19:33] LABS: URINE BILIRUBIN NEGATIVE (NEGATIVE); URINE BLOOD SMALL (NEGATIVE); URINE GLUCOSE (UA) NEGATIVE (NEGATIVE); URINE LEUKOCYTE ESTERASE NEGATIVE Leu/uL (NEGATIVE); URINE PROTEIN NEGATIVE mg/dL (<30 mg/dL); URINE UROBILINOGEN 0.2 E.U./dL (<1 E.U./dL)
[2017-09-30 19:36] LABS: URINE APPEARANCE CLEAR (CLEAR); URINE COLOR YELLOW (YELLOW)
[2017-09-30 19:44] LABS: URINE RBC 15 - 20 /hpf (0-2)
[2017-09-30 21:08] VITALS: BP 115/65; PULSE 75; O2SAT 100
--- NOTE | 2017-09-30 21:54 | ED PDOC ---
Arrival/HPI - General Chief Complaint: Back Pain Time Seen by Provider: 09/30/17 19:08 Historian: Patient - History of Present Illness Narrative History of Present Illness (Text): 09/30/17 21:51 A 52 year old female presents to the emergency department complaining of chronic back pain for more than 1 week. Patient notes taking Naproxen, with no relief. Patient denies any trauma, fever, chills , nausea, vomiting, abdominal pain, urinary symptoms, bowel/bladder dysfunction, chest pain, shortness of breath or any other complaints. Time/Duration: > week Symptom Course: Unchanged Context: Home Past Medical History - Provider Review Nursing Documentation Reviewed: Yes - Past History Past History: Non-Contributing - Infectious Disease Hx of Infectious Diseases: None - Tetanus Immunization Tetanus Immunization: Unknown - Reproductive Menopause: Yes - Cardiac Hx Cardiac Disorders: No - Pulmonary Hx Respiratory Disorders: No - Neurological Hx Neurological Disorder: Yes Hx Dizziness: Yes - HEENT Hx HEENT Disorder: No - Renal Hx Renal Disorder: No - Endocrine/Metabolic Hx Endocrine Disorders: Yes Hx Diabetes Mellitus Type 2: Yes - Hematological/Oncological Hx Blood Disorders: Yes Hx Anemia: Yes - Integumentary Hx Dermatological Disorder: No - Musculoskeletal/Rheumatological Hx Falls: No - Gastrointestinal Hx Gastrointestinal Disorders: Yes Hx Gastroesophageal Reflux: Yes - Genitourinary/Gynecological Hx Genitourinary Disorders: No Hx Urinary Tract Infection: Yes - Psychiatric Hx Psychophysiologic Disorder: No Hx Substance Use: No - Surgical History Hx Hysterectomy: Yes Other/Comment: - Anesthesia Hx Anesthesia: Yes Hx Anesthesia Reactions: No Hx Malignant Hyperthermia: No - Suicidal Assessment Feels Threatened In Home Enviroment: No Family/Social History - Physician Review Nursing Documentation Reviewed: Yes Family/Social History: No Known Family HX Smoking Status: Never Smoked Hx Alcohol Use: No Hx Substance Use: No Hx Substance Use Treatment: No Allergies/Home Meds Allergies/Adverse Reactions: Allergies No Known Allergies Allergy (Verified 07/26/17 16:48) Home Medications: Home Meds Medication Instructions Recorded Confirmed metFORMIN [glucOPHAGE] 500 mg PO DAILY 04/29/16 09/30/17 Review of Systems - Physician Review All systems were reviewed & negative as marked: Yes - Review of Systems Constitutional: absent: Fevers, Night Sweats Respiratory: absent: SOB Cardiovascular: absent: Chest Pain Gastrointestinal: absent: Abdominal Pain, Nausea, Vomiting Genitourinary Female: absent: Dysuria, Frequency, Hematuria Musculoskeletal: Back Pain (chronic) Physical Exam Vital Signs Reviewed: Yes Vital Signs Temp Pulse Resp BP Pulse Ox 09/30/17 21:07 75 18 115/65 100 09/30/17 18:41 98.6 F 78 18 130/71 98 Temperature: Afebrile Blood Pressure: Normal Pulse: Regular Respiratory Rate: Normal Appearance: Positive for: Well-Appearing, Non-Toxic, Comfortable Pain Distress: None Mental Status: Positive for: Alert and Oriented X 3 - Systems Exam Head: Present: Atraumatic, Normocephalic Pupils: Present: PERRL Extroacular Muscles: Present: EOMI Conjunctiva: Present: Normal Mouth: Present: Moist Mucous Membranes Neck: Present: Normal Range of Motion Respiratory/Chest: Present: Clear to Auscultation, Good Air Exchange. No: Respiratory Distress, Accessory Muscle Use Cardiovascular: Present: Regular Rate and Rhythm, Normal S1, S2. No: Murmurs Abdomen: Present: Normal Bowel Sounds. No: Tenderness, Distention, Peritoneal Signs Back: Present: Normal Inspection. No: Midline Tenderness, Paraspinal Tenderness Upper Extremity: Present: Normal Inspection. No: Cyanosis, Edema Lower Extremity: Present: Normal Inspection. No: Edema Neurological: Present: GCS=15, CN II-XII Intact, Speech Normal Skin: Present: Warm, Dry, Normal Color. No: Rashes Psychiatric: Present: Alert, Oriented x 3, Normal Insight, Normal Concentration Medical Decision Making ED Course and Treatment: 09/30/17 21:51 Impression: A 52 year old female with chronic back pain Plan: -- Lumbar spine xray -- Urine culture and Urinalysis -- Flexeril and Motrin -- Reassess and disposition Progress Notes: Lumbar spine xray read and interpreted by me, which shows no acute fractures. On re-evaluation, patient feels better and is in no acute distress. I have discussed the results and plan with the patient, who expresses understanding. Patient in agreement with plan to be discharged home. Patient is stable for discharge. Patient was instructed to follow up with physician or return if symptoms worsen or new concerning symptoms arise. - Lab Interpretations Lab Results: Lab Results 09/30/17 19:14: Urine Color Yellow, Urine Appearance Clear, Urine pH 6.0, Ur Specific Byers 1.025, Urine Protein Negative, Urine Glucose (UA) Negative, Urine Ketones Negative, Urine Blood Small H, Urine Nitrate Negative, Urine Bilirubin Negative, Urine Urobilinogen 0.2, Ur Leukocyte Esterase Negative, Urine RBC 15 - 20, Urine WBC 2 - 5, Ur Epithelial Cells 1 - 3 - RAD Interpretation Radiology Orders: 09/30/17 19:22 LS SPINE WITH OBL > 18 YRS OLD [RAD] Stat - Medication Orders Current Medication Orders: Discontinued Medications Cyclobenzaprine HCl (Flexeril) 10 mg PO STAT STA Stop: 09/30/17 19:09 Last Admin: 09/30/17 19:25 Dose: 10 mg Ibuprofen (Motrin Tab) 600 mg PO STAT STA Stop: 09/30/17 19:09 Last Admin: 09/30/17 19:26 Dose: 600 mg MAR Pain/Vitals Document 09/30/17 19:26 EQ (Rec: 09/30/17 19:26 EQ [id number]) Pain Reassessment Is This A Pain ReAssessment? No Sleep Is patient sleeping during reassessment? No Presence of Pain Presence of Pain Yes - Scribe Statement The provider has reviewed the documentation as recorded by the Masoodibkemar Thomason Provider Scribe Attestation: All medical record entries made by the Scribe were at my direction and personally dictated by me. I have reviewed the chart and agree that the record accurately reflects my personal performance of the history, physical exam, medical decision making, and the department course for this patient. I have also personally directed, reviewed, and agree with the discharge instructions and disposition. Disposition/Present on Arrival - Present on Arrival Any Indicators Present on Arrival: No History of DVT/PE: No History of Uncontrolled Diabetes: No Urinary Catheter: No History of Decub. Ulcer: No History Surgical Site Infection Following: None - Disposition Have Diagnosis and Disposition been Completed?: Yes Diagnosis: Lower back pain Disposition: HOME/ ROUTINE Disposition Time: 18:30 Condition: GOOD Discharge Instructions (ExitCare): Low Back Pain (DC) Additional Instructions: Thank you for letting us take care of you today. The emergency medical care you received today was directed at your acute symptoms. If you were prescribed any medication, please fill it and take as directed. It may take several days for your symptoms to resolve. Return to the Emergency Department if your symptoms worsen, do not improve, or if you have any other problems. Please contact your doctor or call one of the physicians/clinics you have been referred to that are listed on the Patient Visit Information form that is included in your discharge packet. Bring any paperwork you were given at discharge with you along with any medications you are taking to your follow up visit. Our treatment cannot replace ongoing medical care by a primary care provider (PCP) outside of the emergency department. Thank you for allowing the [facility] team to be part of your care today. Follow up with your primary care doctor in 2-3 days for re-evaluation and further management. Prescriptions: Cyclobenzaprine [Cyclobenzaprine HCl] 10 mg PO Q8 PRN #20 tab PRN Reason: Muscle Spasm Naproxen [Naprosyn] 500 mg PO Q12 PRN #15 tablet PRN Reason: Pain, Severe (8-10) Referrals: Lloyd Antoine MD [Primary Care Provider] - Follow up with primary Forms: [employer] (Persian), WORK NOTE
--- NOTE | 2017-10-01 09:00 | RAD ---
PROCEDURE: Radiographs of the Lumbar Spine. HISTORY: lower back pain COMPARISON: No prior. FINDINGS: BONES: Normal alignment. No listhesis. No fracture. DISC SPACES: Unremarkable. 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 This finding is confirmed on a prior CT scan 10/12/2016. IMPRESSION: No acute findings related to/accounting for the clinical presentation. Additional benign and/or incidental findings described above.
== END 2017-09-30 21:36 | disposition home or self-care (01) ==
LOC: ED 18:11
DX: M54.5 Low back pain (principal); E11.9 Type 2 diabetes mellitus without complications

== ENCOUNTER 2017-11-22 14:33 | Observation (INO) | payer OTHER ==
[2017-11-22] MEDS ORDERED: Sodium Chloride 0.9% 1,000 ML IV STA (14:46)
--- NOTE | 2017-11-22 14:49 | ED PDOC ---
Arrival/HPI - General Chief Complaint: Chest Pain Time Seen by Provider: 11/22/17 14:45 Historian: Patient - History of Present Illness Narrative History of Present Illness (Text): 11/22/17 14:40 A 52 year old female, whose past medical history includes diabetes, post menopausal, presents to the emergency department complaining of left-side chest pain radiating to left shoulder blade region starting earlier today. Patient describes pain as sharp and non-radiating, severity of 4/10. She states she has not seen her PMD and arrives here in the ER to seek care. Patient denies any other symptoms at this time. Also, patient denies any history of smoking. Patient mentions as well that she is postmenopausal. Pt. has no palpitation, no rash, no numbness or tingling. PMD: Dr. Antoine Time/Duration: Other (began earlier today) Symptom Onset: Sudden Symptom Course: Unchanged Past Medical History - Provider Review Nursing Documentation Reviewed: Yes - Past History Past History: Non-Contributing - Infectious Disease Hx of Infectious Diseases: None - Tetanus Immunization Tetanus Immunization: Unknown - Cardiac Hx Cardiac Disorders: No - Pulmonary Hx Respiratory Disorders: No - Neurological Hx Neurological Disorder: Yes Hx Dizziness: Yes - HEENT Hx HEENT Disorder: No - Renal Hx Renal Disorder: No - Endocrine/Metabolic Hx Endocrine Disorders: Yes Hx Diabetes Mellitus Type 2: Yes - Hematological/Oncological Hx Blood Disorders: Yes Hx Anemia: Yes - Integumentary Hx Dermatological Disorder: No - Musculoskeletal/Rheumatological Hx Falls: No - Gastrointestinal Hx Gastrointestinal Disorders: Yes Hx Gastroesophageal Reflux: Yes - Genitourinary/Gynecological Hx Genitourinary Disorders: No Hx Urinary Tract Infection: Yes - Psychiatric Hx Psychophysiologic Disorder: No Hx Substance Use: No - Surgical History Hx Hysterectomy: Yes Other/Comment: - Anesthesia Hx Anesthesia: Yes Hx Anesthesia Reactions: No Hx Malignant Hyperthermia: No - Suicidal Assessment Feels Threatened In Home Enviroment: No Family/Social History - Physician Review Nursing Documentation Reviewed: Yes Family/Social History: No Known Family HX Smoking Status: Never Smoked Hx Alcohol Use: No Hx Substance Use: No Hx Substance Use Treatment: No Allergies/Home Meds Allergies/Adverse Reactions: Allergies No Known Allergies Allergy (Verified 11/22/17 14:41) Home Medications: Home Meds Medication Instructions Recorded Confirmed metFORMIN [glucOPHAGE] 500 mg PO DAILY 04/29/16 11/22/17 Review of Systems - Review of Systems Constitutional: absent: Fatigue, Fevers, Night Sweats Respiratory: absent: SOB, Cough Cardiovascular: Chest Pain. absent: Palpitations Gastrointestinal: absent: Abdominal Pain, Nausea, Vomiting Musculoskeletal: absent: Myalgias Skin: absent: Rash, Pruritis Neurological: absent: Headache, Dizziness Psychiatric: absent: Anxiety, Depression Physical Exam Vital Signs Reviewed: Yes Vital Signs Temp Pulse Resp BP Pulse Ox 11/22/17 16:48 78 18 107/68 100 11/22/17 14:39 98.6 F 80 18 140/86 100 Temperature: Afebrile Blood Pressure: Normal Pulse: Regular Respiratory Rate: Normal Appearance: Positive for: Well-Appearing Pain Distress: Moderate Mental Status: Positive for: Alert and Oriented X 3 - Systems Exam Head: Present: Atraumatic, Normocephalic Pupils: Present: PERRL Extroacular Muscles: Present: EOMI Conjunctiva: Present: Normal Mouth: Present: Moist Mucous Membranes Neck: Present: Normal Range of Motion Respiratory/Chest: Present: Clear to Auscultation, Good Air Exchange. No: Respiratory Distress, Accessory Muscle Use Cardiovascular: Present: Regular Rate and Rhythm, Normal S1, S2. No: Murmurs Abdomen: No: Tenderness, Distention, Peritoneal Signs, Rebound, Guarding Back: Present: Normal Inspection Upper Extremity: Present: Normal Inspection. No: Cyanosis, Edema Lower Extremity: Present: Normal Inspection. No: Edema Neurological: Present: GCS=15, CN II-XII Intact, Speech Normal, Motor Func Grossly Intact, Normal Cerebellar Funct, Gait Normal, Memory Normal Skin: Present: Warm, Dry, Normal Color. No: Rashes Psychiatric: Present: Alert, Oriented x 3, Normal Insight, Normal Concentration Medical Decision Making ED Course and Treatment: 11/22/17 14:44 Impression: 52 year old female with left-side chest pain radiating to left shoulder. Plan: -- EKG -- Chest X-ray -- Labs -- Aspirin/morphine -- IV Fluids -- Reassess and disposition Prior Visits: Notes and results from previous visits were reviewed. Patient was last seen in the emergency department on 09/30/2017 for chronic back pain. Patient was discharged home. Progress Notes: EKG: Ordered, reviewed, and independently interpreted the EKG. Rate : 81 BPM Rhythm : NSR Interpretation : No ST-segment elevations or depressions, no T-wave inversions, normal intervals. Comparison : No previous EKG for comparison. HEART score: 4 11/22/17 14:54 Patient will remain here in the hospital for 24 hr observation due to HEART score criteria and history of diabetes. 11/22/17 17:01 -EKG: NSR @ 81 BPM, no ST elevation or depression, no T wave inversion, no previous ekg available for comparison. -Chest xray ER wet read show no active disease -Labs show no acute findings -Troponin is negative for 1st set -Pt. feels well at this time, however, she will need 24 hours monitoring troponin trending for this on set of chest pain, paging Dr. Antoine for admission. -I explained to the patient and she agreed to be admitted, paging Dr. Antoine 11/22/17 17:27 -I spoke to Dr. Antoine, he is on vacation, request hospitalist to admit all his patient, paging hospitalist now. 11/22/17 17:37 -I spoke to Dr. Combs, hospitalist animal nutritionist, discussed about the case, agreed to admit the patient for tele-observation. -I discussed with DR. Evans, discussed about the case/labs and will put in the admission order. - Lab Interpretations Lab Results: 11/22/17 14:50 11/22/17 14:50 Lab Results 11/22/17 14:50: WBC 6.5, RBC 5.01, Hgb 12.9, Hct 39.9, MCV 79.6 L, MCH 25.7, MCHC 32.3, RDW 13.4, Plt Count 224, MPV 9.3, Gran % 69.6 H, Lymph % (Auto) 22.8 , [place] % (Auto) 4.7, Eos % (Auto) 2.6, Baso % (Auto) 0.3, Gran # 4.49, Lymph # ( Auto) 1.5, [place] # (Auto) 0.3, Eos # (Auto) 0.2, Baso # (Auto) 0.02 11/22/17 14:50: Sodium 141, Potassium 3.7, Chloride 103, Carbon Dioxide 26, Anion Gap 15, BUN 23 H, Creatinine 0.7, Est GFR ( Amer) > 60, Est GFR ( Non-Af Amer) > 60, Random Glucose 182 H, Calcium 9.1, Magnesium 1.8, Total Bilirubin 0.1 L, AST 30, ALT 29, Alkaline Phosphatase 58, Lactate Dehydrogenase 464, Total Creatine Kinase 112, Troponin I < 0.01, NT-Pro-B Natriuret Pep 102, Total Protein 7.2, Albumin 4.2, Globulin 3.0, Albumin/Globulin Ratio 1.4 I have reviewed the lab results: Yes - RAD Interpretation Radiology Orders: 11/22/17 14:46 CHEST PORTABLE [RAD] Stat HISTORY: chest pain COMPARISON: Comparison made with prior chest radiograph 05/16/2017 FINDINGS: LUNGS: No active pulmonary disease. PLEURA: No significant pleural effusion identified, no pneumothorax apparent. CARDIOVASCULAR: Normal. OSSEOUS STRUCTURES: No significant abnormalities. VISUALIZED UPPER ABDOMEN: Normal. OTHER FINDINGS: None. IMPRESSION: No active disease. Help Desk Coordinator: Radiologist - EKG Interpretation EKG Interpretation (Text): 11/22/17 15:13 -EKG: NSR @ 81 BPM, no ST elevation or depression, no T wave inversion, no previous ekg available for comparison. Interpreted by ED Physician: Yes Type: 12 lead EKG Comparison: No previous EKG avail. - Medication Orders Current Medication Orders: Discontinued Medications Aspirin (Aspirin) 325 mg PO STAT STA Stop: 11/22/17 14:47 Last Admin: 11/22/17 15:07 Dose: 325 mg Sodium Chloride (Sodium Chloride 0.9%) 1,000 mls @ 999 mls/hr IV .Q1H1M STA Stop: 11/22/17 15:46 Last Admin: 11/22/17 15:06 Dose: 999 mls/hr eMAR Start Stop Document 11/22/17 15:06 EWO (Rec: 11/22/17 15:07 EWO [id number]) Intravenous Solution Start Date 11/22/17 Start Time 15:06 End Date 11/22/17 End time 16:06 Total Infusion Time 60 Morphine Sulfate (Morphine) 4 mg IVP STAT STA Stop: 11/22/17 15:14 Last Admin: 11/22/17 16:02 Dose: Not Given Non-Admin Reason: Patient Refused - PA / GEOLOGICAL SCOUT / Resident Statement MD/DO has reviewed & agrees with the documentation as recorded. - Scribe Statement The provider has reviewed the documentation as recorded by the Corbin Frye Provider Corbin Attestation: All medical record entries made by the Corbin were at my direction and personally dictated by me. I have reviewed the chart and agree that the record accurately reflects my personal performance of the history, physical exam, medical decision making, and the department course for this patient. I have also personally directed, reviewed, and agree with the discharge instructions and disposition. Disposition/Present on Arrival - Present on Arrival Any Indicators Present on Arrival: No History of DVT/PE: No History of Uncontrolled Diabetes: No Urinary Catheter: No History of Decub. Ulcer: No History Surgical Site Infection Following: None - Disposition Have Diagnosis and Disposition been Completed?: Yes Diagnosis: Chest pain Disposition: HOSPITALIZED Disposition Time: 17:02 Patient Plan: Admission, Observation, Telemetry Patient Problems: Current Active Problems Problem Status Onset Chest pain Chronic Condition: STABLE Discharge Instructions (ExitCare): Chest Pain (ED) Forms: [employer] (Danish)
[2017-11-22 15:11] LABS: BASO # 0.02 K/mm3 (0.0-2.0); BASO % 0.3 % (0.0-3.0); EOS # 0.2 (0.0-0.7); EOS % 2.6 % (1.5-5.0); GRAN # 4.49 (1.4-6.5); GRAN % 69.6 % (50.0-68.0); HEMOGLOBIN 12.9 g/dL (12.0-16.0); LYMPH # 1.5 (1.2-3.4); LYMPH % 22.8 % (22.0-35.0); MEAN CELL VOLUME 79.6 fl (80.0-105.0); MEAN CORPUSCULAR HEMOGLOBIN 25.7 pg (25.0-35.0); MEAN CORPUSCULAR HGB CONC 32.3 g/dl (31.0-37.0); MEAN PLATELET VOLUME 9.3 fl (7.0-11.0); MONO # 0.3 (0.1-0.6); MONO % 4.7 % (1.0-6.0); RBC 5.01 10^6/uL (3.5-6.1); RED CELL DISTRIBUTION WIDTH 13.4 % (11.5-14.5); WHITE BLOOD COUNT 6.5 10^3/ul (4.5-11.0)
[2017-11-22] MEDS ORDERED: Morphine 4 mg/ml ISec IVP STA (15:13)
[2017-11-22 15:20] LABS: ALB/GLOB RATIO 1.4 (1.1-1.8); ALBUMIN 4.2 g/dL (3.0-4.8); ALT/SGPT 29 U/L (7-56); AST/SGOT 30 U/L (14-36); BLOOD UREA NITROGEN 23 mg/dL (7-21); CALCIUM 9.1 mg/dL (8.4-10.5); GFR AFRICAN-AMERICAN > 60; GFR NON-AFRICAN AMERICAN > 60
[2017-11-22 15:32] LABS: B-TYPE NATRIURETIC PEPTIDE 102 pg/mL (0-450); TROPONIN I < 0.01 ng/mL
--- NOTE | 2017-11-22 17:25 | RAD ---
HISTORY: chest pain COMPARISON: Comparison made with prior chest radiograph 05/16/2017 FINDINGS: LUNGS: No active pulmonary disease. PLEURA: No significant pleural effusion identified, no pneumothorax apparent. CARDIOVASCULAR: Normal. OSSEOUS STRUCTURES: No significant abnormalities. VISUALIZED UPPER ABDOMEN: Normal. OTHER FINDINGS: None. IMPRESSION: No active disease.
[2017-11-22 18:53] VITALS: O2SAT 98
--- NOTE | 2017-11-22 19:54 | CP.PCM.HP ---
<Karan Cooley - Last Filed: 11/22/17 20:12> History of Present Illness - History of Present Illness History of Present Illness: cc: chest pain HPI: Patient is a 52yo female with past medical history of diabetes that presents c/o chest pain for the past 10 days. She reported the pain is substernal and radiates to the neck, should, and back. Pain is intermittent in nature, lasting a few minutes at a time, occurring randomly, not associated with activity. Pain feels like pressure, not associated with shortness of breath , associated with "fluttering heart". She did not have any pain during the encounter. She has had this pain on and off for years and had a stress test "a couple years ago" which was reportedly negative. Denies fever, chills, cough, abdominal pain, nausea, vomiting, focal weakness, numbness, tingling. 12point ROS as per HPI above, otherwise negative PMHx: Diabetes Mellitus, GERD PSHx: Hysterectomy Medications: Metformin 500 Allergies: NKDA Social Hx: denies tobacco, alcohol and illicit drug use Family Hx: Multiple sclerosis, congenital heart defect (brother) PMD: Dr. Cifuentes Present on Admission - Present on Admission Any Indicators Present on Admission: No Past Patient History - Infectious Disease Hx of Infectious Diseases: None - Tetanus Immunizations Tetanus Immunization: Unknown - Past Social History Smoking Status: Never Smoked - CARDIAC Hx Cardiac Disorders: No - PULMONARY Hx Respiratory Disorders: No - NEUROLOGICAL Hx Neurological Disorder: Yes Hx Dizziness: Yes - HEENT Hx HEENT Problems: No - RENAL Hx Chronic Kidney Disease: No - ENDOCRINE/METABOLIC Hx Endocrine Disorders: Yes Hx Diabetes Mellitus Type 2: Yes - HEMATOLOGICAL/ONCOLOGICAL Hx Blood Disorders: Yes Hx Anemia: Yes - INTEGUMENTARY Hx Dermatological Problems: No - MUSCULOSKELETAL/RHEUMATOLOGICAL Hx Falls: No - GASTROINTESTINAL Hx Gastrointestinal Disorders: Yes Hx Gastroesophageal Reflux: Yes - GENITOURINARY/GYNECOLOGICAL Hx Genitourinary Disorders: No Hx Urinary Tract Infection: Yes - PSYCHIATRIC Hx Psychophysiologic Disorder: No Hx Substance Use: No - SURGICAL HISTORY Hx Hysterectomy: Yes Other/Comment: - ANESTHESIA Hx Anesthesia: Yes Hx Anesthesia Reactions: No Hx Malignant Hyperthermia: No Meds Allergies/Adverse Reactions: Allergies Allergy/AdvReac Type Severity Reaction Status Date / Time No Known Allergies Allergy Verified 11/22/17 21:20 Physical Exam - Constitutional Appears: Non-toxic, No Acute Distress - Head Exam Head Exam: ATRAUMATIC, NORMOCEPHALIC - Eye Exam Eye Exam: EOMI, Normal appearance - ENT Exam ENT Exam: Mucous Membranes Moist - Neck Exam Neck exam: Positive for: Normal Inspection - Respiratory Exam Respiratory Exam: Clear to Auscultation Bilateral, NORMAL BREATHING PATTERN. absent: Chest Wall Tenderness - Cardiovascular Exam Cardiovascular Exam: RRR, +S1, +S2 - GI/Abdominal Exam GI & Abdominal Exam: Normal Bowel Sounds, Soft. absent: Distended, Firm, Guarding, Rigid, Tenderness - Extremities Exam Extremities exam: Negative for: calf tenderness, pedal edema - Neurological Exam Neurological exam: Alert, Oriented x3 - Psychiatric Exam Psychiatric exam: Normal Affect, Normal Mood - Skin Skin Exam: Dry, Intact, Normal Color Results - Vital Signs Recent Vital Signs: Last Vital Signs Temp 98.6 F 11/22/17 14:39 Pulse 76 11/22/17 18:52 Resp 18 11/22/17 18:52 BP 122/78 11/22/17 18:52 Pulse Ox 98 11/22/17 18:52 - Labs Result Diagrams: 11/22/17 14:50 11/22/17 14:50 Assessment & Plan - Assessment and Plan (Free Text) Assessment: 52 yo F with PMH of diabetes and atypical chest pain presents complaining of atypical chest pain for the past 10 days. EKG and troponin in the ER are negative. Admitted to hospital for observation to r/o ACS Chest pain - r/o ACS, more likely 2/2 anxiety vs GERD - Initial EKG and troponin negative - No chest pain on exam; no chest wall tenderness; no tachycardia, shortness of breath, or cough - Continue to trend troponing - Repeat EKG in AM - Check TSH, lipid panel, and A1c - She received ASA in the ER - Ordered one dose of lipitor; pending lipid panel - Start BB; hold for BP<100/60 or HR<60 - Request cardio consult; appreciate recs H/o diabetes - Start ISS low; accucheck ACHS - Check A1c DVT Ppx: SCDs Patient seen and case discussed with attending Dr. Coreas <Althea Coreas - Last Filed: 11/23/17 06:36> Results - Vital Signs Recent Vital Signs: Last Vital Signs Temp 98.6 F 11/22/17 22:22 Pulse 76 11/22/17 22:22 Resp 18 11/22/17 22:22 BP 122/78 11/22/17 22:22 Pulse Ox 98 11/22/17 18:52 - Labs Result Diagrams: 11/22/17 14:50 11/22/17 14:50 Labs: Laboratory Results - last 24 hr 11/22/17 21:35 POC Glucose (mg/dL) 115 H Attending/Attestation - Attestation I have personally seen and examined this patient.: Yes I have fully participated in the care of the patient.: Yes I have reviewed all pertinent clinical information: Yes Notes (Text): 11/23/17 06:31 Pt seen ,discussed with Resident. IMP:chest pain Diabetes Mellitus PLAN:As ordered.
[2017-11-22] MEDS: Insulin Reg-LOW-Coverage SC SCH (21:50)
[2017-11-22 22:34] VITALS: BMI 21.9
[2017-11-22] MEDS ORDERED: Pneumococcal 23-Valent Vaccine IM ONE (22:34)
[2017-11-23 07:52] LABS: BASO # 0.02 K/mm3 (0.0-2.0); BASO % 0.5 % (0.0-3.0); EOS # 0.2 (0.0-0.7); GRAN # 2.47 (1.4-6.5); GRAN % 55.7 % (50.0-68.0); HEMOGLOBIN 12.7 g/dL (12.0-16.0); LYMPH # 1.4 (1.2-3.4); LYMPH % 32.5 % (22.0-35.0); MEAN CELL VOLUME 80.4 fl (80.0-105.0); MEAN CORPUSCULAR HEMOGLOBIN 25.4 pg (25.0-35.0); MEAN CORPUSCULAR HGB CONC 31.6 g/dl (31.0-37.0); MEAN PLATELET VOLUME 9.4 fl (7.0-11.0); MONO # 0.3 (0.1-0.6); MONO % 6.3 % (1.0-6.0); RED CELL DISTRIBUTION WIDTH 13.6 % (11.5-14.5); WHITE BLOOD COUNT 4.4 10^3/ul (4.5-11.0)
[2017-11-23 08:15] LABS: LDL CHOLESTEROL 62 mg/dL (0-129)
[2017-11-23 08:17] LABS: ALB/GLOB RATIO 1.3 (1.1-1.8); ALBUMIN 3.9 g/dL (3.0-4.8); ALT/SGPT 30 U/L (7-56); AST/SGOT 32 U/L (14-36); BLOOD UREA NITROGEN 16 mg/dL (7-21); CALCIUM 8.8 mg/dL (8.4-10.5); GFR AFRICAN-AMERICAN > 60; GFR NON-AFRICAN AMERICAN > 60; HDL CHOLESTEROL 97 mg/dL (29-60)
[2017-11-23] MEDS: Insulin Reg-LOW-Coverage SC SCH (08:17)
--- NOTE | 2017-11-23 12:05 | CP.PCM.DIS ---
<Shari Roe - Last Filed: 11/23/17 15:54> Provider - Provider Date of Admission: 11/22/17 17:37 Attending physician: Kenia Combs MD Primary care physician: Dr Gissell Cifuentes Consults: Cardiology: Dr Crocker Time Spent in preparation of Discharge (in minutes): 45 Diagnosis - Discharge Diagnosis (1) Atypical chest pain Status: Resolved (2) Diabetes Status: Chronic Hospital Course - Lab Results Lab Results: Most Recent Lab Values WBC 4.4 10^3/ul (4.5-11.0) L D 11/23/17 07:35 RBC 5.00 10^6/uL (3.5-6.1) 11/23/17 07:35 Hgb 12.7 g/dL (12.0-16.0) 11/23/17 07:35 Hct 40.2 % (36.0-48.0) 11/23/17 07:35 MCV 80.4 fl (80.0-105.0) 11/23/17 07:35 MCH 25.4 pg (25.0-35.0) 11/23/17 07:35 MCHC 31.6 g/dl (31.0-37.0) 11/23/17 07:35 RDW 13.6 % (11.5-14.5) 11/23/17 07:35 Plt Count 206 10^3/uL (120.0-450.0) 11/23/17 07:35 MPV 9.4 fl (7.0-11.0) 11/23/17 07:35 Gran % 55.7 % (50.0-68.0) 11/23/17 07:35 Lymph % (Auto) 32.5 % (22.0-35.0) 11/23/17 07:35 [place] % (Auto) 6.3 % (1.0-6.0) H 11/23/17 07:35 Eos % (Auto) 5.0 % (1.5-5.0) 11/23/17 07:35 Baso % (Auto) 0.5 % (0.0-3.0) 11/23/17 07:35 Gran # 2.47 (1.4-6.5) 11/23/17 07:35 Lymph # (Auto) 1.4 (1.2-3.4) 11/23/17 07:35 [place] # (Auto) 0.3 (0.1-0.6) 11/23/17 07:35 Eos # (Auto) 0.2 (0.0-0.7) 11/23/17 07:35 Baso # (Auto) 0.02 K/mm3 (0.0-2.0) 11/23/17 07:35 Sodium 142 mmol/L (132-148) 11/23/17 07:35 Potassium 4.5 mmol/L (3.6-5.0) 11/23/17 07:35 Chloride 104 mmol/L (98-107) 11/23/17 07:35 Carbon Dioxide 30 mmol/L (21-33) 11/23/17 07:35 Anion Gap 14 (10-20) 11/23/17 07:35 BUN 16 mg/dL (7-21) 11/23/17 07:35 Creatinine 0.6 mg/dl (0.7-1.2) L 11/23/17 07:35 Est GFR ( Amer) > 60 11/23/17 07:35 Est GFR (Non-Af Amer) > 60 11/23/17 07:35 POC Glucose (mg/dL) 116 mg/dL (65-110) H 11/23/17 07:43 Random Glucose 109 mg/dL (70-110) 11/23/17 07:35 Calcium 8.8 mg/dL (8.4-10.5) 11/23/17 07:35 Phosphorus 3.3 mg/dL (2.5-4.5) 11/23/17 07:35 Magnesium 2.0 mg/dL (1.7-2.2) 11/23/17 07:35 Total Bilirubin 0.4 mg/dL (0.2-1.3) 11/23/17 07:35 AST 32 U/L (14-36) 11/23/17 07:35 ALT 30 U/L (7-56) 11/23/17 07:35 Alkaline Phosphatase 62 U/L (38-126) 11/23/17 07:35 Lactate Dehydrogenase 464 U/L (333-699) 11/22/17 14:50 Total Creatine Kinase 112 U/L (35-230) 11/22/17 14:50 Troponin I < 0.01 ng/mL 11/23/17 07:35 NT-Pro-B Natriuret Pep 102 pg/mL (0-450) 11/22/17 14:50 Total Protein 6.9 g/dL (5.8-8.3) 11/23/17 07:35 Albumin 3.9 g/dL (3.0-4.8) 11/23/17 07:35 Globulin 3.0 gm/dL 11/23/17 07:35 Albumin/Globulin Ratio 1.3 (1.1-1.8) 11/23/17 07:35 Triglycerides 85 mg/dL (35-160) 11/23/17 07:35 Cholesterol 182 mg/dL (130-200) 11/23/17 07:35 LDL Cholesterol Direct 62 mg/dL (0-129) 11/23/17 07:35 HDL Cholesterol 97 mg/dL (29-60) H 11/23/17 07:35 TSH 3rd Generation 0.82 mIU/mL (0.46-4.68) 11/22/17 22:00 - Hospital Course Hospital Course: Patient is a 52 y/o female with past medical history of diabetes and GERD who presented with 10 days of intermittent substernal chest pain, that radiates to the neck and shoulders. The chest pain self terminates, not related to any activity. Patient had prior chest pain the past, had stress test 2 years ago which was negative. Patient was suppose to follow up with the cardiology is 6 months at the time, however lost to follow. In the ed, patient was noted to have normal sinus on EKG with no st/t wave changes, troponin was normal x3. No events on tele. thyroid panel was normal. Patient is non smoker and non alcohol , no history of AL in the family as per patient, except for a brother with congenital heart disease. Lipid panel with LDL of 62, hdl 97. Furniture Repairer saw patient, recommending outpatient stress test. Patient to continue with po 81 mg asa and follow up as outpatient for the stress test. Patient to also follow up with Dr Cifuentes in 1 week. - Date & Time of H&P Date of H&P: 11/22/17 Time of H&P: 19:50 Discharge Exam - Head Exam Head Exam: ATRAUMATIC, NORMOCEPHALIC - Eye Exam Eye Exam: EOMI, Normal appearance, PERRL Pupil Exam: NORMAL ACCOMODATION - ENT Exam ENT Exam: Mucous Membranes Moist - Neck Exam Neck exam: Normal Inspection - Respiratory Exam Respiratory Exam: Clear to PA & Lateral, NORMAL BREATHING PATTERN, UNREMARKABLE. absent: Prolonged Expiratory Phase, Rales, Rhonchi, Wheezes, Stridor - Cardiovascular Exam Cardiovascular Exam: REGULAR RHYTHM, RRR, +S1, +S2. absent: Bradycardia, Tachycardia, Systolic Murmur - GI/Abdominal Exam GI & Abdominal Exam: Normal Bowel Sounds, Unremarkable. absent: Distended, Firm , Guarding, Rigid, Soft, Tenderness - Back Exam Back exam: NORMAL INSPECTION. absent: tenderness - Neurological Exam Neurological exam: Alert, CN II-XII Intact, Oriented x3, Reflexes Normal - Psychiatric Exam Psychiatric exam: Normal Affect, Normal Mood - Skin Skin Exam: Dry, Intact, Normal Color, Warm Discharge Plan - Follow Up Plan Condition: STABLE Disposition: HOME/ ROUTINE Patient education suggested?: Yes Instructions: Chest Pain (DC) Additional Instructions: Please follow up with Dr Crocker for outpatient stress test Please follow up with Dr Cifuentes in 1 week Please return to the emergency room if the chest pain persists or worsens. Referrals: Gissell Cifuentes MD [Family Provider] - Mey Crocker MD [Staff Provider] - <Cande Frances - Last Filed: 11/23/17 16:04> Provider - Provider Date of Admission: 11/22/17 17:37 Attending physician: Kenia Combs MD Hospital Course - Lab Results Lab Results: Most Recent Lab Values WBC 4.4 10^3/ul (4.5-11.0) L D 11/23/17 07:35 RBC 5.00 10^6/uL (3.5-6.1) 11/23/17 07:35 Hgb 12.7 g/dL (12.0-16.0) 11/23/17 07:35 Hct 40.2 % (36.0-48.0) 11/23/17 07:35 MCV 80.4 fl (80.0-105.0) 11/23/17 07:35 MCH 25.4 pg (25.0-35.0) 11/23/17 07:35 MCHC 31.6 g/dl (31.0-37.0) 11/23/17 07:35 RDW 13.6 % (11.5-14.5) 11/23/17 07:35 Plt Count 206 10^3/uL (120.0-450.0) 11/23/17 07:35 MPV 9.4 fl (7.0-11.0) 11/23/17 07:35 Gran % 55.7 % (50.0-68.0) 11/23/17 07:35 Lymph % (Auto) 32.5 % (22.0-35.0) 11/23/17 07:35 [place] % (Auto) 6.3 % (1.0-6.0) H 11/23/17 07:35 Eos % (Auto) 5.0 % (1.5-5.0) 11/23/17 07:35 Baso % (Auto) 0.5 % (0.0-3.0) 11/23/17 07:35 Gran # 2.47 (1.4-6.5) 11/23/17 07:35 Lymph # (Auto) 1.4 (1.2-3.4) 11/23/17 07:35 [place] # (Auto) 0.3 (0.1-0.6) 11/23/17 07:35 Eos # (Auto) 0.2 (0.0-0.7) 11/23/17 07:35 Baso # (Auto) 0.02 K/mm3 (0.0-2.0) 11/23/17 07:35 Sodium 142 mmol/L (132-148) 11/23/17 07:35 Potassium 4.5 mmol/L (3.6-5.0) 11/23/17 07:35 Chloride 104 mmol/L (98-107) 11/23/17 07:35 Carbon Dioxide 30 mmol/L (21-33) 11/23/17 07:35 Anion Gap 14 (10-20) 11/23/17 07:35 BUN 16 mg/dL (7-21) 11/23/17 07:35 Creatinine 0.6 mg/dl (0.7-1.2) L 11/23/17 07:35 Est GFR ( Amer) > 60 11/23/17 07:35 Est GFR (Non-Af Amer) > 60 11/23/17 07:35 POC Glucose (mg/dL) 127 mg/dL (65-110) H 11/23/17 12:28 Random Glucose 109 mg/dL (70-110) 11/23/17 07:35 Calcium 8.8 mg/dL (8.4-10.5) 11/23/17 07:35 Phosphorus 3.3 mg/dL (2.5-4.5) 11/23/17 07:35 Magnesium 2.0 mg/dL (1.7-2.2) 11/23/17 07:35 Total Bilirubin 0.4 mg/dL (0.2-1.3) 11/23/17 07:35 AST 32 U/L (14-36) 11/23/17 07:35 ALT 30 U/L (7-56) 11/23/17 07:35 Alkaline Phosphatase 62 U/L (38-126) 11/23/17 07:35 Lactate Dehydrogenase 464 U/L (333-699) 11/22/17 14:50 Total Creatine Kinase 112 U/L (35-230) 11/22/17 14:50 Troponin I < 0.01 ng/mL 11/23/17 07:35 NT-Pro-B Natriuret Pep 102 pg/mL (0-450) 11/22/17 14:50 Total Protein 6.9 g/dL (5.8-8.3) 11/23/17 07:35 Albumin 3.9 g/dL (3.0-4.8) 11/23/17 07:35 Globulin 3.0 gm/dL 11/23/17 07:35 Albumin/Globulin Ratio 1.3 (1.1-1.8) 11/23/17 07:35 Triglycerides 85 mg/dL (35-160) 11/23/17 07:35 Cholesterol 182 mg/dL (130-200) 11/23/17 07:35 LDL Cholesterol Direct 62 mg/dL (0-129) 11/23/17 07:35 HDL Cholesterol 97 mg/dL (29-60) H 11/23/17 07:35 TSH 3rd Generation 0.82 mIU/mL (0.46-4.68) 11/22/17 22:00 Attending/Attestation - Attestation I have personally seen and examined this patient.: Yes I have fully participated in the care of the patient.: Yes I have reviewed all pertinent clinical information, including history, physical exam and plan: Yes Notes (Text): 11/23/17 16:03 Patient seen and examined at bedside. No complaints given and symptoms have completely resolved. labs remain normal and no abnormality noted on EKGs. Cardiology consult appreciated. Agree with outpatient follow up plan for a stress test. Advised to return to the ED in case of any recurrence of symptoms.
--- NOTE | 2017-11-23 12:05 | CP.PCM.PN ---
Objective - Vital Signs/Intake and Output Vital Signs (last 24 hours): Temp Pulse Resp BP Pulse Ox 97.9 F 73 20 117/77 98 11/23/17 06:00 11/23/17 06:00 11/23/17 06:00 11/23/17 06:00 11/23/17 06:00 Intake and Output: 11/23/17 11/23/17 06:59 18:59 Intake Total 300 Balance 300 - Medications Medications: Current Medications Aspirin (Aspirin Chewable) 81 mg PO DAILY [facility] Last Admin: 11/23/17 10:21 Dose: 81 mg Insulin Human Regular (Humulin R Low) 0 units SC ACHS [facility] PRN Reason: Protocol Last Admin: 11/23/17 08:17 Dose: Not Given Metoprolol Tartrate (Lopressor) 25 mg PO BRKDIN [facility] Last Admin: 11/23/17 10:23 Dose: Not Given - Labs Labs: 11/23/17 07:35 11/23/17 07:35
--- NOTE | 2017-11-23 13:47 | CARD ---
APPROVED REPORT EKG Measurement Heart [id number] <Conclusion> Normal sinus rhythm Normal ECG
[2017-11-23 16:25] VITALS: BP 106/65; PULSE 57; RESP 18; TEMP 97.6
--- NOTE | 2017-11-24 03:51 | CON ---
DATE: 11/23/2017 REASON FOR THE CONSULTATION: Followup cardiac evaluation, chest pain. BRIEF CLINICAL HISTORY: A 52-year-old female with past medical history of diabetes, on oral hypoglycemic agent, came in with chest pain for more than 2 months off an on, it stays for 10 minutes and goes away, then gets better, then gets no definite relation to exertion. No definite relation to food. Chest pain stays there 10 to 15 minutes and gets better. Patient came to the emergency room. Patient had seen a granite block paver in Dr. Gissell Thayer's group 2 years ago stress was negative, then patient lost to follow up. PAST MEDICAL HISTORY: Significant for diabetes, on oral hypoglycemic agent. SOCIAL HISTORY: Denies smoking, denies any history of alcohol abuse. PAST SURGICAL HISTORY: Significant for hysterectomy. CURRENT MEDICATIONS: Taking metformin 500 mg once a day. FAMILY HISTORY: Noncontributory. PHYSICAL EXAMINATION: VITAL SIGNS: Temperature afebrile, heart rate 73, blood pressure 117/77. HEENT: PERRLA. Extraocular muscles intact. NECK: Supple. No carotid bruit. No thyromegaly. CHEST: Clear to auscultation. HEART: S1 and S2 regular. ABDOMEN: Soft. EXTREMITIES: Clubbing and cyanosis negative. LABORATORY DATA: Blood workup as follows; WBC 4.4, hemoglobin , hematocrit 40.2, platelet count 206. Chemistry shows sodium 142, potassium 4.5, chloride 104, carbon dioxide 30, anion gap of 14, BUN 16, creatinine 0.7. Troponin 0.01, negative. EKG showed normal sinus, no acute ST-T changes noted. IMPRESSION: Atypical chest pain, diabetes. Given the multiple episodes of coronary artery disease, suggest stress test as outpatient. Patient will be scheduled for a stress test as an outpatient. Discussed with the patient, discussed with the , discussed with Dr. Frances. Possibly discharge today and schedule a stress test as outpatient. Mey Crocker MD
== END 2017-11-23 18:00 | disposition home or self-care (01) ==
LOC: ED 14:33 → ERH 17:37 → 3RNO 19:26
PROVIDERS: ADMIT Internal Medicine; ATTEND Internal Medicine
DX: R07.89 Other chest pain (principal); E11.9 Type 2 diabetes mellitus without complications; Z82.49 Family history of ischemic heart disease and other diseases of the circulatory system; Z82.0 Family history of epilepsy and other diseases of the nervous system; I25.10 Atherosclerotic heart disease of native coronary artery without angina pectoris; K21.9 Gastro-esophageal reflux disease without esophagitis; Z87.440 Personal history of urinary (tract) infections; Z90.710 Acquired absence of both cervix and uterus
CPT/HCPCS: 36415; 71045; 80053; 80061; 82550; 82948; 83036; 83615; 83735; 83880; 84100; 84443; 84484; 85025; 93005; 96360; 99285; G0378; J7030

== ENCOUNTER 2017-11-30 16:05 | Emergency (ER) | payer OTHER ==
[2017-11-30 16:06] VITALS: BMI 21.9
[2017-11-30 16:21] VITALS: PULSE 80; TEMP 98.6; O2SAT 99
[2017-11-30] MEDS ORDERED: Oxycodone/Acetaminophen 5/325 mg Tab PO STA (16:36)
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
[2017-11-30 17:17] LABS: URINE BILIRUBIN NEGATIVE (NEGATIVE); URINE BLOOD SMALL (NEGATIVE); URINE GLUCOSE (UA) NEGATIVE (NEGATIVE); URINE LEUKOCYTE ESTERASE NEGATIVE Leu/uL (NEGATIVE); URINE PROTEIN NEGATIVE mg/dL (<30 mg/dL); URINE UROBILINOGEN 0.2 E.U./dL (<1 E.U./dL)
[2017-11-30 17:21] LABS: URINE APPEARANCE CLEAR (CLEAR); URINE COLOR YELLOW (YELLOW)
[2017-11-30 17:30] LABS: URINE CALCIUM OXALATE CRYSTALS FEW /hpf; URINE WBC 0 - 2 /hpf (0-6)
[2017-11-30 17:31] LABS: URINE BACTERIA FEW (NEG)
[2017-11-30 17:37] LABS: BLOOD UREA NITROGEN 15 mg/dL (7-21); GFR AFRICAN-AMERICAN > 60; GFR NON-AFRICAN AMERICAN > 60
--- NOTE | 2017-11-30 17:48 | CT ---
PROCEDURE: CT Abdomen and Pelvis without intravenous contrast HISTORY: left flank pain COMPARISON: 10/12/2016. CT abdomen and pelvis TECHNIQUE: Unenhanced study. Neither oral nor intravenous contrast administered. Radiation dose: Total exam DLP = 260.49 mGy-cm. This CT exam was performed using one or more of the following dose reduction techniques: Automated exposure control, adjustment of the mA and/or kV according to patient size, and/or use of iterative reconstruction technique. FINDINGS: LOWER THORAX: Unremarkable. LIVER: Unremarkable. No gross lesion or ductal dilatation. GALLBLADDER AND BILE DUCTS: Unremarkable. PANCREAS: Unremarkable. No gross lesion or ductal dilatation. SPLEEN: Unremarkable. ADRENALS: Unremarkable. No mass. KIDNEYS AND URETERS: Unremarkable. No hydronephrosis. No solid mass. VASCULATURE: Unremarkable. No aortic aneurysm. BOWEL: Constipation without fecal impaction or obstruction. APPENDIX: Unremarkable. Normal appendix. PERITONEUM: Unremarkable. No free fluid. No free air. LYMPH NODES: Unremarkable. No enlarged lymph nodes. BLADDER: Unremarkable. REPRODUCTIVE: Prior hysterectomy. BONES: No acute fracture. OTHER FINDINGS: None. IMPRESSION: No acute findings related to/accounting for the clinical presentation. Additional benign and/or incidental findings described above. No significant interval change compared to the prior examination(s).
[2017-11-30 18:08] VITALS: BP 120/73; RESP 18
== END 2017-11-30 18:06 | disposition home or self-care (01) ==
LOC: ED 16:05
DX: R10.9 Unspecified abdominal pain (principal); K59.00 Constipation, unspecified; R31.29 Other microscopic hematuria; E11.9 Type 2 diabetes mellitus without complications; D64.9 Anemia, unspecified
CPT/HCPCS: 74176; 80048; 81001; 82948; 96374; 99284; J1885

== ENCOUNTER 2017-12-08 09:42 | Emergency (ER) | payer OTHER ==
[2017-12-08 10:15] VITALS: TEMP 98.3; O2SAT 99; BMI 22.1
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
[2017-12-08] MEDS ORDERED: oxyCODONE 5 mg Immediate Release Tab PO STA (11:16)
[2017-12-08 11:48] VITALS: BP 108/70; PULSE 76; RESP 16
== END 2017-12-08 11:47 | disposition home or self-care (01) ==
LOC: ED 09:42
DX: G89.29 Other chronic pain (principal); M54.5 Low back pain

== ENCOUNTER 2018-08-13 19:20 | Emergency (ER) | payer OTHER | END 2018-08-13 22:21 | disposition home or self-care (01) | LOC: ED 19:20 ==